=== PATIENT | female | born 1930 | race Caucasian/White ===

== ENCOUNTER → 2017-01-17 | Outpatient (CLI) | payer MEDICARE, OTHER ==
--- NOTE | 2017-01-18 07:47 | US ---
EXAMINATION TYPE: US kidneys/renal and bladder DATE OF EXAM: 01/17/2017 3:18 PM COMPARISON: NONE CLINICAL HISTORY: N20.0 Kidney Stones. UTI's EXAM MEASUREMENTS: Right Kidney: 8.9 x 3.7 x 4.1 cm Left Kidney: 10.5 x 4.3 x 5.8 cm Right Kidney: smaller in size Left Kidney: wnl Bladder: wnl Bilateral Jets seen: Yes No renal lithiasis is identified. No masses cysts or hydronephrosis is evident. IMPRESSION: Normal renal ultrasound.
== END | disposition home or self-care (01) ==
LOC: RADUSWWP 14:48
PROVIDERS: ATTEND Internal Medicine Geriatric Medicine
DX: N20.0 Calculus of kidney (principal)
CPT/HCPCS: 76770

== ENCOUNTER → 2017-04-28 | Outpatient (CLI) | payer MEDICARE, OTHER ==
--- NOTE | 2017-04-28 13:41 | MM ---
Reason for exam: additional evaluation requested from prior study. Last mammogram was performed 1 year ago. History: Patient is postmenopausal, has history of breast cancer at age 82, and has history of other cancer at age 82. Benign US LT VAD breast biopsy of the left breast, March 22, 2013. Malignant US LT VAD breast biopsy of the left breast, March 22, 2013. Mastectomy of the left breast, 2012. Benign stereotactic core biopsy of the left breast, November 06, 2003. Took estrogen for 3 years. Physical Findings: Nurse did not find any significant physical abnormalities on exam. MG 3D Diag Mammo W/Cad RT CC and MLO view(s) were taken of the right breast. Prior study comparison: April 15, 2016, right breast MG 3d diag mammo w/cad RT. April 08, 2015, right breast MG diagnostic mammo RT w CAD. The breast tissue is heterogeneously dense. This may lower the sensitivity of mammography. Finding: There are typically benign diffuse/scattered calcifications in the right breast. No suspicious finding. No significant changes in finding since April 15, 2016 and April 08, 2015. These results were verbally communicated with the patient and result sheet given to the patient on 04/28/17. ASSESSMENT: Benign, BI-RAD 2 RECOMMENDATION: Follow-up diagnostic mammogram of both breasts in 1 year.
== END | disposition home or self-care (01) ==
LOC: RADMAMWWP 12:46
PROVIDERS: ATTEND Internal Medicine Geriatric Medicine
DX: C50.919 Malignant neoplasm of unspecified site of unspecified female breast (principal)
CPT/HCPCS: G0206; G0279

== ENCOUNTER → 2018-06-26 | Outpatient (CLI) | payer MEDICARE, OTHER ==
--- NOTE | 2018-06-26 15:07 | BD ---
EXAMINATION TYPE: Axial Bone Density DATE OF EXAM: 06/26/2018 COMPARISON: NONE CLINICAL HISTORY: Postmenopausal female. Osteoporosis screening. Height: 5 FT 1/2 IN Weight: 158 FRAX RISK QUESTIONS: RISK FACTORS HISTORY OF: Postmenopausal woman: AGE 57 MEDICATIONS: Additional Medications: METOPROLOL, LISINOPRIL, OXYBUTIN, SLEEP AID, MULTI VIT, INSULIN, METFORMIN, Additional History: EXAM MEASUREMENTS: Bone mineral densitometry was performed using the [employer] System. Bone mineral density as measured about the Lumbar spine is: ----- L1-L4(G/cm2): 2.042 T Score Values are as follows: ----- L2: 7.6 ----- L3: 9.9 ----- L4: 6.6 ----- L1-L4: 7.2 FIRST TIME HERE Bone mineral density about the R hip (g/cm2): 0.918 Bone mineral density about the L hip (g/cm2): 0.965 T Score values are as follows: -----R Neck: -0.9 -----L Neck: -0.5 -----R Total: 0.9 -----L Total: 0.8 FIRST TIME HERE IMPRESSION: Normal (Values between +1 and -1 indicate normal bone mass). Consider repeating this study in 5 year s or sooner if there is some new clinical indication. NOTE: T-SCORE=SD OF THE YOUNG ADULT MEAN.
--- NOTE | 2018-06-27 09:03 | MM ---
Reason for exam: additional evaluation requested from prior study. Last mammogram was performed 1 year and 2 months ago. History: Patient is postmenopausal, has history of breast cancer at age 82, and has history of other cancer at age 82. Benign US LT VAD breast biopsy of the left breast, March 22, 2013. Malignant US LT VAD breast biopsy of the left breast, March 22, 2013. Mastectomy of the left breast, 2012. Benign stereotactic core biopsy of the left breast, November 06, 2003. Took estrogen for 3 years. Physical Findings: Nurse did not find any significant physical abnormalities on exam. MG 3D Diag Mammo W/Cad RT CC and MLO view(s) were taken of the right breast. Prior study comparison: April 28, 2017, right breast MG 3d diag mammo w/cad RT. April 15, 2016, right breast MG 3d diag mammo w/cad RT. Finding: There are typically benign diffuse/scattered calcifications in the right breast. No suspicious abnormality. No significant changes in finding since April 28, 2017 and April 15, 2016. These results were verbally communicated with the patient and result sheet given to the patient on 06/26/18. ASSESSMENT: Benign, BI-RAD 2 RECOMMENDATION: Routine screening mammogram of the right breast in 1 year.
== END | disposition home or self-care (01) ==
LOC: RADMAMWWP 13:27
PROVIDERS: ATTEND Internal Medicine Geriatric Medicine
DX: C50.912 Malignant neoplasm of unspecified site of left female breast (principal); M81.0 Age-related osteoporosis without current pathological fracture
CPT/HCPCS: 77080; 77065; G0279; 77061

== ENCOUNTER 2018-09-16 06:37 | Emergency (ER) | payer MEDICARE, OTHER ==
[2018-09-16 06:47] VITALS: PULSE 94; RESP 18
--- NOTE | 2018-09-16 07:50 | ED ---
General Adult HPI - General Chief complaint: Urogenital Stated complaint: Female Time Seen by Provider: 09/16/18 07:00 Source: patient, RN notes reviewed Mode of arrival: wheelchair Limitations: no limitations - History of Present Illness Initial comments: This is an 88-year-old female who presents to the emergency department complaining of urinary frequency. Patient states this started months ago and she has been following up with her doctor. Patient states she came in today because it was worse last night. Patient denies any dysuria or hematuria. Patient denies any fever or chills. Patient denies any suprapubic tenderness. Patient states she is a diabetic and her sugar was in the 70s this morning. Patient denies any back pain. Patient denies any abdominal pain. - Related Data Previous Rx's Medication Instructions Recorded Sulfamethox-Tmp 800-160Mg [Bactrim 1 each PO Q12HR #14 tab 09/16/18 DS 800-160 mg] Allergies Allergy/AdvReac Type Severity Reaction Status Date / Time No Known Allergies Allergy Verified 09/16/18 06:47 Review of Systems ROS Statement: Those systems with pertinent positive or pertinent negative responses have been documented in the HPI. ROS Other: All systems not noted in ROS Statement are negative. Past Medical History Past Medical History: Cancer, Diabetes Mellitus, Hyperlipidemia, Hypertension, Osteoarthritis (OA) History of Any Multi-Drug Resistant Organisms: None Reported Past Surgical History: Appendectomy, Hysterectomy, Joint Replacement, Tonsillectomy Additional Past Surgical History / Comment(s): Left masectomy, bilateral knee Past Psychological History: No Psychological Hx Reported Smoking Status: Former smoker Past Alcohol Use History: None Reported Past Drug Use History: None Reported General Exam - General Exam Comments Initial Comments: GENERAL: Patient is well-developed and well-nourished. Patient is nontoxic and well- hydrated and is in no acute distress. ENT: Neck is soft and supple. No significant lymphadenopathy is noted. Oropharynx is clear. Moist mucous membranes. Neck has full range of motion without eliciting any pain. EYES: The sclera were anicteric and conjunctiva were pink and moist. Extraocular movements were intact and pupils were equal round and reactive to light. Eyelids were unremarkable. PULMONARY: Unlabored respirations. Good breath sounds bilaterally. No audible rales rhonchi or wheezing was noted. CARDIOVASCULAR: There is a regular rate and rhythm without any murmurs gallops or rubs. ABDOMEN: Soft and nontender with normal bowel sounds. No palpable organomegaly was noted. There is no palpable pulsatile mass. SKIN: Skin is clear with no lesions or rashes and otherwise unremarkable. NEUROLOGIC: Patient is alert and oriented x3. Cranial nerves II through XII are grossly intact. Motor and sensory are also intact. Normal speech, volume and content. Symmetrical smile. MUSCULOSKELETAL: Normal extremities with adequate strength and full range of motion. LYMPHATICS: No significant lymphadenopathy is noted Limitations: no limitations Course Vital Signs 09/16/18 06:42 Temperature 97.5 F L Pulse Rate 94 Respiratory 18 Rate Blood Pressure 120/81 O2 Sat by Pulse 99 Oximetry Medical Decision Making - Medical Decision Making I gave the patient Grant because she had a urinary tract infection - Lab Data Lab Results 09/16/18 Range/Units 07:30 Urine Color Light Yellow Urine Appearance Turbid H (Clear) Urine pH 6.0 (5.0-8.0) Ur Specific [place] 1.014 (1.001-1.035) Urine Protein 1+ H (Negative) Urine Glucose (UA) Negative (Negative) Urine Ketones Negative (Negative) Urine Blood Small H (Negative) Urine Nitrite Negative (Negative) Urine Bilirubin Negative (Negative) Urine Urobilinogen <2.0 (<2.0) mg/dL Ur Leukocyte Esterase Large H (Negative) Urine WBC >182 H (0-5) /hpf Urine WBC Clumps Many H (None) /hpf Urine Bacteria Rare H (None) /hpf Urine Mucus Rare H (None) /hpf Disposition Clinical Impression: Urinary tract infection Disposition: HOME SELF-CARE Condition: Good Instructions: Urinary Tract Infection in Women (ED) Prescriptions: Sulfamethox-Tmp 800-160Mg [Bactrim DS 800-160 mg] 1 each PO Q12HR #14 tab Is patient prescribed a controlled substance at d/c from ED?: No Referrals: Sterling Bella MD [Primary Care Provider] - 1-2 days Time of Disposition: 08:27
[2018-09-16 08:07] LABS: Appearance,Urine Turbid (Clear); Bacteria,Urine Rare /hpf; Bilirubin,Urine Negative (Negative); Blood,Urine Small (Negative); Color,Urine Light Yellow; Glucose,Urine (UA) Negative (Negative); Ketones,Urine Negative (Negative); Leukocyte Esterase,Urine Large (Negative); Mucus,Urine Rare /hpf; Nitrite,Urine Negative (Negative); Protein,Urine 1+ (Negative); Specific Gravity,Urine 1.014 (1.001-1.035); Urobilinogen,Urine <2.0 mg/dL (<2.0)
[2018-09-16] MEDS ORDERED: cefTRIAXone 1,000 MG VIAL (IM USE) IM STA (08:21)
[2018-09-16 09:19] VITALS: BP 104/59; TEMP 97.9
== END 2018-09-16 09:19 | disposition home or self-care (01) ==
LOC: EC 06:37
DX: N39.0 Urinary tract infection, site not specified (principal); M19.90 Unspecified osteoarthritis, unspecified site; Z85.9 Personal history of malignant neoplasm, unspecified; Z96.89 Presence of other specified functional implants; Z87.891 Personal history of nicotine dependence
CPT/HCPCS: 81001; 87086; 99283; 96372; J0696; 87077; 87186

== ENCOUNTER 2018-11-18 20:22 | Inpatient (IN) | payer MEDICARE ==
--- NOTE | 2018-11-18 21:09 | ED ---
General Adult HPI - General Chief complaint: Fall Stated complaint: Fall Source: patient, family, EMS, RN notes reviewed Mode of arrival: EMS Limitations: no limitations - History of Present Illness Initial comments: Chief complaint and history of present illness this is an 88-year-old female was brought in by EMS. The patient reports/thinks that she was on her way to the bathroom and she caught her heel on a rug which caused her to fall. Denies any injury from the fall , denies any significant pain. She had an emergency button which summoned the EMS, they helped her get up. She's had bilateral total knee replacement and this makes it difficult for her to get up. After they helped her to her feet she walked to the toilet went to the bathroom and walked out. Patient denies head injury denies neck pain. Denies nausea or vomiting. - Related Data Home Medications Medication Instructions Recorded Confirmed Atorvastatin Calcium [Lipitor] 10 mg PO DAILY 09/16/18 11/18/18 Insulin Glargine,Hum.rec.anlog 80 unit SQ DAILY 09/16/18 11/18/18 [Kory Hwang] L.acidoph,Paracasei, B.lactis 1 cap PO DAILY 09/16/18 11/18/18 [Probiotic] Lisinopril [Zestril] 2.5 mg PO DAILY 09/16/18 11/18/18 Multivitamins, Thera [Multivitamin 1 tab PO DAILY 09/16/18 11/18/18 (formulary)] Oxybutynin Chloride [Ditropan] 5 mg PO DAILY 09/16/18 11/18/18 Vit C/E/Zn/Coppr/Lutein/Zeaxan 1 cap PO DAILY 09/16/18 11/18/18 [Preservision Areds 2 Softgel] metFORMIN HCL [Glucophage] 500 mg PO BID 09/16/18 11/18/18 Cephalexin [Keflex] 250 mg PO DAILY 11/18/18 11/18/18 D [place] 5oomg 3 tab PO DAILY 11/18/18 11/18/18 Ergocalciferol (Vitamin D2) 50,000 unit PO Q7D 11/18/18 11/18/18 [Drisdol] Metoprolol Succinate [Toprol XL] 25 mg PO DAILY 11/18/18 11/18/18 Mirabegron [Myrbetriq] 50 mg PO DAILY 11/18/18 11/18/18 Naproxen Sodium [Aleve] 440 mg PO DAILY 11/18/18 11/18/18 Nitrofurantoin Monohyd/M-Cryst 100 mg PO DAILY 11/18/18 11/18/18 [Macrobid] Temazepam [Restoril] 15 mg PO HS 11/18/18 11/18/18 Allergies Allergy/AdvReac Type Severity Reaction Status Date / Time No Known Allergies Allergy Verified 11/18/18 21:41 Review of Systems ROS Statement: Those systems with pertinent positive or pertinent negative responses have been documented in the HPI. Review of systems patient denies any headache no visual acuity changes no stiff neck or neck pain. Denies palpitations or shortness of breath no GI/ problems. Denies nausea denies vomiting denies any neuro deficits. All systems were reviewed. The patient's past medical problems significant for diabetes mellitus, hyperlipidemia and hypertension. Osteoarthritis, patient past history includes mastectomy for breast cancer. She also has had an appendectomy, hysterectomy bilateral knee replacements tonsillectomy area family history noncontributory no known ALLERGIES. Nonsmoker nondrinker. ROS Other: All systems not noted in ROS Statement are negative. Past Medical History Past Medical History: Cancer, Diabetes Mellitus, Hyperlipidemia, Hypertension, Osteoarthritis (OA) History of Any Multi-Drug Resistant Organisms: None Reported Past Surgical History: Appendectomy, Hysterectomy, Joint Replacement, Tonsillectomy Additional Past Surgical History / Comment(s): Left masectomy, bilateral knee Past Psychological History: No Psychological Hx Reported Smoking Status: Former smoker Past Alcohol Use History: None Reported Past Drug Use History: None Reported General Exam - General Exam Comments Initial Comments: General: The patient is awake and alert, in no distress, and does not appear acutely ill. Patient is here because she had a stumble and fall at home. Denies syncope. Vital signs show temperature 98.6 pulse 98 respiratory rate 19 and blood pressure 109/47. No difficulty breathing. We performed orthostatics and the patient's blood pressure remained appropriate but her heart rate went up to 125 while standing, felt wobbly and had a loose stool. Eye: Pupils are equal, round and reactive to light, extra-ocular movements are inta ct; there is normal conjunctiva bilaterally. No signs of icterus. History of cataract removal. Ears, nose, mouth and throat: There are moist mucous membranes and no oral lesions. Neck: The neck is supple, there is no tenderness, nontender with flexion and extension and looking left and right. No anterior cervical lymphadenopathy. No carotid bruit. Cardiovascular: There is a regular rate and rhythm. No murmur, rub or gallop is appreciated. Respiratory: Lungs are clear to auscultation, respirations are non-labored, breath sounds are equal. No wheezes, stridor, rales, or rhonchi. Palpation of the rib cage causes no discomfort. Gastrointestinal: Soft, non-distended, non-tender abdomen without masses or organomegaly noted. There is no rebound or guarding present. No CVA tenderness. Bowel sounds are unremarkable. Back: There is no tenderness to palpation in the midline. There is no obvious deformity. No rashes noted. Musculoskeletal: Normal ROM, no tenderness, There is no pedal edema. There is no calf tenderness or swelling. Sensation intact. Pulses equal bilaterally 2+. Neurological: CN II-XII intact, There are no obvious motor or sensory deficits. Coordination appears grossly intact. Speech is normal. No focal or lateralizing findings. Patient was unable to stand totally on her own during orthostatics. While laying flat in bed she had no neuro deficits. Skin: Skin is warm and dry and no rashes or lesions are noted. Psychiatric: Cooperative, appropriate mood & affect, normal judgment. Limitations: no limitations Course Vital Signs 11/18/18 11/18/18 20:29 21:05 Temperature 98.6 F Pulse Rate 98 Pulse Rate [ 102 H Sitting Lithographic Platemaker] Pulse Rate [ 124 H Standing Lithographic Platemaker ] Pulse Rate [ 92 Supine Lithographic Platemaker] Respiratory 19 Rate Blood Pressure 109/47 Blood Pressure 127/66 [Right Arm Sitting] Blood Pressure 139/92 [Right Arm Standing] Blood Pressure 114/49 [Right Arm Supine] EKG Findings - EKG Comments: EKG Findings:: EKG was done at 2118 showing sinus rhythm with occasional PACs page undetermined inferior infarct. Rate 97/m, MI interval was 158 QRS 64 QT [address] Botello no old EKG available to compare to. Medical Decision Making - Medical Decision Making Medical decision making; this is an 88-year-old female who reports she stumbled and fell at home. Unable to get up because she's had 2 total knee revisions. After EMS help her up she was able to walk to the bathroom and to the wheelchair and then to the hospital. The patient's trauma examination was all within normal limits. No headache no chest pain no injury to upper or lower extremities. Neurologically grossly intact no focal or lateralizing findings. Patient's EKG showed normal sinus rhythm with occasional PACs but no acute changes. The patient was having orthostatics performed and her heart rate went up precipitously when she stood up and felt dizzy and became incontinent of stool. The patient then revealed that she is on her second course of antibiotics for urinary tract infection. Possibility for C. diff was discussed. Cultures pending. We'll also give the patient fluid bolus, check CBC, and UA. As possibility of a syncopal episode was discussed. At this point unknown if the patient may have bumped her head with a syncopal episode, she will receive a CAT scan of the brain. She remains neurologically intact. It was decided to do a CAT scan of the brain because the patient may have fallen and bumped her head unbeknownst to her. Possibility of a vasovagal syncope is also considered. While in emergency room the patient's blood pressure was normal 1 laying and sitting but of heart rate went up significantly when she stood and he became unsteady, was placed back in the bed and had a large bowel movement she couldn't control. Labs show white count 11 hemoglobin only 8.7 hematocrit of 27. Potassium 5.6 with a BUN of 49 creatinine 1.89 the GFR 23. Glucose 137. Alk phos 170. C. diff negative. CT the brain was done reviewed by radiologist entire report was read. His findings ; a small calcified left frontal meningioma. No ventriculomegaly. No acute fracture. No fluid levels in the sinuses. Mastoid air cells are unremarkable as visualized on mastoid effusion. Impression; no acute findings. As read by Dr. Luque Patient was hydrated 1 L of fluid. No old labs are available to compare today's numbers to. She does appear to be anemic though again no old labs are available. She also presents with acute kidney injury with a BUN of 49 creatinine 1.89 and GFR of only 23. Again no old kidney function test available. She has been on antibiotics several different times for urinary tract infection. Took her last pill today. On a previous visit she had been prescribed Bactrim. She also then stated that she took 1 pill twice a day for 3 days which possibly be a fluoroquinolone but she doesn't have the bottle nor can she remember what the pill was. The patient be admitted for further evaluation, hydration. - Lab Data Result diagrams: 11/18/18 22:27 11/18/18 22:27 Lab Results 11/18/18 11/18/18 11/18/18 Range/Units 22:27 22:27 22:50 WBC 11.6 H (3.8-10.6) k/uL RBC 2.80 L (3.80-5.40) m/uL Hgb 8.7 L (11.4-16.0) gm/dL Hct 27.0 L (34.0-46.0) % MCV 96.5 (80.0-100.0) fL MCH 31.0 (25.0-35.0) pg MCHC 32.1 (31.0-37.0) g/dL RDW 13.5 (11.5-15.5) % Plt Count 258 (150-450) k/uL Neutrophils % 75 % Lymphocytes % 15 % Monocytes % 6 % Eosinophils % 1 % Basophils % 1 % Neutrophils # 8.8 H (1.3-7.7) k/uL Lymphocytes # 1.8 (1.0-4.8) k/uL Monocytes # 0.7 (0-1.0) k/uL Eosinophils # 0.2 (0-0.7) k/uL Basophils # 0.1 (0-0.2) k/uL Sodium 137 (137-145) mmol/L Potassium 5.6 H (3.5-5.1) mmol/L Chloride 102 (98-107) mmol/L Carbon Dioxide 24 (22-30) mmol/L Anion Gap 11 mmol/L BUN 49 H (7-17) mg/dL Creatinine 1.89 H (0.52-1.04) mg/dL Est GFR (CKD-EPI)AfAm 27 (>60 ml/min/1.73 sqM) Est GFR (CKD-EPI)NonAf 23 (>60 ml/min/1.73 sqM) Glucose 137 H (74-99) mg/dL Calcium 9.7 (8.4-10.2) mg/dL Total Bilirubin 0.7 (0.2-1.3) mg/dL AST 20 (14-36) U/L ALT 29 (9-52) U/L Alkaline Phosphatase 170 H (38-126) U/L Total Protein 6.0 L (6.3-8.2) g/dL Albumin 3.3 L (3.5-5.0) g/dL C. difficile (EIA) Intrp Negative (Negative) Disposition Clinical Impression: Vasovagal syncope, Dehydration symptoms, Acute kidney injury Disposition: ADMITTED IP TO THIS [facility] Condition: Serious Is patient prescribed a controlled substance at d/c from ED?: No Referrals: Sterling Bella MD [Primary Care Provider] - 1-2 days
[2018-11-18] MEDS ORDERED: SODIUM CHLORIDE 0.9% 500 ML 500 ML IV ONE (22:20)
[2018-11-18 22:37] LABS: Basophils # (A) 0.1 k/uL (0-0.2); Basophils % (A) 1 %; Eosinophils # (A) 0.2 k/uL (0-0.7); Eosinophils % (A) 1 %; HGB 8.7 gm/dL (11.4-16.0); Lymphocytes # (A) 1.8 k/uL (1.0-4.8); Lymphocytes % (A) 15 %; MCHC 32.1 g/dL (31.0-37.0); MCV 96.5 fL (80.0-100.0); Mean Platelet Volume 7.1; Monocytes # (A) 0.7 k/uL (0-1.0); Monocytes % (A) 6 %; Neutrophils # (A) 8.8 k/uL (1.3-7.7); Neutrophils % (A) 75 %; Platelet Count 258 k/uL (150-450); RDW 13.5 % (11.5-15.5); WBC 11.6 k/uL (3.8-10.6)
[2018-11-18 22:45] LABS: Albumin 3.3 g/dL (3.5-5.0); Calcium 9.7 mg/dL (8.4-10.2); Potassium 5.6 mmol/L (3.5-5.1); Total Bilirubin 0.7 mg/dL (0.2-1.3)
--- NOTE | 2018-11-18 23:26 | CT ---
EXAM: CT Head Without Intravenous Contrast CLINICAL HISTORY: ITS.REASON CT Reason: Pain TECHNIQUE: Axial computed tomography images of the head/brain without intravenous contrast. CTDI is 49 mGy and DLP is [address] exam was performed using one or more of the following dose reduction techniques: automated exposure control, adjustment of the mA and/or kV according to patient size, and/or use of iterative reconstruction technique. COMPARISON: No relevant prior studies available. FINDINGS: Brain: Small calcified left frontal meningioma Ventricles: Unremarkable. No ventriculomegaly. Bones/joints: No acute fracture. Soft tissues: Unremarkable. Sinuses: No fluid levels. Mastoid air cells: Unremarkable as visualized. No mastoid effusion. IMPRESSION: No acute findings.
[2018-11-19] MEDS ORDERED: NALOXONE 0.4 MG/ML 1 ML VIAL IV PRN (01:08)
[2018-11-19 01:30] LABS: Appearance,Urine Cloudy (Clear); Bilirubin,Urine Negative (Negative); Blood,Urine Small (Negative); Color,Urine Yellow; Glucose,Urine (UA) Negative (Negative); Hyaline Casts,Urine 9 /lpf (0-2); Ketones,Urine Negative (Negative); Leukocyte Esterase,Urine Large (Negative); Nitrite,Urine Negative (Negative); PH, Urine 5.5 (5.0-8.0); Protein,Urine 1+ (Negative); RBC,Urine 10 /hpf (0-5); Specific Gravity,Urine 1.013 (1.001-1.035); Squamous Epithelial Cell,Urine 19 /hpf (0-4); WBC,Urine >182 /hpf (0-5)
[2018-11-19] MEDS: SODIUM CHLORIDE 0.9% 1,000 ML IV SCH ×3 (01:51→21:20)
[2018-11-19] MEDS ORDERED: FAMOTIDINE 20 MG TAB PO SCH (09:00)
[2018-11-19] MEDS ORDERED: NITROFURANTOIN MONOHYD/M-CRYST 100 MG CAP PO SCH (09:00)
[2018-11-19] MEDS ORDERED: Mirabegron [Myrbetriq] 50 MG PO SCH (09:00)
[2018-11-19] MEDS ORDERED: metFORMIN 500 MG TAB PO SCH (09:00)
[2018-11-19 09:13] VITALS: BMI 28.1
[2018-11-19] MEDS ORDERED: ERTAPENEM 1 GM in SODIUM CHLORIDE 0.9% 50 ML IVPB SCH (11:00)
[2018-11-19 11:14] LABS: Glucose,Whole Blood 62 mg/dL (75-99)
[2018-11-19 11:28] LABS: Glucose,Whole Blood 60 mg/dL (75-99)
[2018-11-19 11:34] LABS: HCT 25.4 % (34.0-46.0); HGB 7.9 gm/dL (11.4-16.0); MCH 29.1 pg (25.0-35.0); MCV 93.6 fL (80.0-100.0); Platelet Count 253 k/uL (150-450); RBC 2.71 m/uL (3.80-5.40); RDW 13.6 % (11.5-15.5); WBC 10.8 k/uL (3.8-10.6)
[2018-11-19 11:45] LABS: Glucose,Whole Blood 87 mg/dL (75-99)
[2018-11-19 11:52] LABS: Potassium 4.7 mmol/L (3.5-5.1)
[2018-11-19] MEDS: INSULIN DETEMIR (LEVEMIR) 100 UNIT/ML SYR SQ SCH (12:54)
[2018-11-19] MEDS: LACTOBACILLUS ACIDOPH & BULGAR 1 EACH PACKET PO SCH (12:56)
[2018-11-19] MEDS: INSULIN ASPART (NovoLOG) 100 UNIT/ML VIAL SQ SCH ×3 (12:57→21:20)
[2018-11-19] MEDS: VIT A,C & E-LUTEIN-MINERALS 1 EACH TAB PO SCH (12:57)
[2018-11-19] MEDS: LISINOPRIL 2.5 MG TAB PO SCH (12:57)
[2018-11-19] MEDS: METOPROLOL SUCCINATE (ER) 25 MG TAB.ER.24H PO SCH (12:57)
[2018-11-19] MEDS: OXYBUTYNIN CHLORIDE 5 MG TAB PO SCH (13:54)
[2018-11-19 14:14] LABS: Appearance,Urine Turbid (Clear); Bacteria,Urine Many /hpf; Bilirubin,Urine Negative (Negative); Blood,Urine Moderate (Negative); Color,Urine Yellow; Glucose,Urine (UA) Negative (Negative); Ketones,Urine Negative (Negative); Leukocyte Esterase,Urine Large (Negative); Nitrite,Urine Negative (Negative); PH, Urine 5.5 (5.0-8.0); Protein,Urine 1+ (Negative); RBC,Urine 76 /hpf (0-5); Squamous Epithelial Cell,Urine 2 /hpf (0-4); Urobilinogen,Urine <2.0 mg/dL (<2.0); WBC,Urine >182 /hpf (0-5)
--- NOTE | 2018-11-19 14:17 | P.HPIM ---
History of Present Illness H&P Date: 11/19/18 Chief Complaint: Fall This is an 88-year-old female patient of Dr. Bella with past medical history of hypertension, hyperlipidemia and diabetes mellitus type 2, and osteoarthritis, breast cancer status post mastectomy. Patient complains of status post a slip and fall at home. Patient denies any loss of consciousness. She states she was able to push her alert button and EMS came to pick her up. She states she was starting to have diarrhea which would be her first episode of this and was trying to get to the bathroom very quickly with her walker and she was almost there but felt a little lightheaded and then had a trip and fall. She also gives history of being on antibiotics for urinary tract infection that has lasted for the past 6 months. This has been treated by Dr. Bella. Patient was seen by Dr. Colbert and underwent a scope in the office on Monday. He gave the patient a prescription for Macrodantin to take for 3 days if she develops signs and symptoms of a UTI. Patient states that she did take the medication Monday and Monday and completed this. Daughter is at the bedside and states the patient has frequency of urination and she doesn't want to drink fluids so she doesn't have to get up frequently during the night and use the bathroom. Patient does not recall the names of previous antibiotics that she has used over the past 6 months. Patient came into the [facility] emergency center by EMS. She was afebrile. Heart rate running 100-124, blood pressure 109/60 47. Orthostatics were negative. EKG was a sinus rhythm with occasional PACs without acute changes. He white count 11, hemoglobin 8.7, platelet count 258. BUN 49 and creatinine 1.89, blood sugar 137, sodium 137, potassium 5.6, chloride 102, CO2 24. C. difficile toxin negative. Alkaline phosphatase 170. Urinalysis was cloudy, leukoesterase large, rbc's 10, WBCs greater than 182, WBC clumps moderate, squamous cells 19. [facility] and started on IV fluids at 100 mL per hour. CAT scan of the brain showed no acute findings. Review of Systems All systems: negative Constitutional: Reports poor appetite, Denies chills, Denies fever, Denies weakness Eyes: denies blurred vision, denies pain Ears, nose, mouth and throat: Denies dysphagia, Denies headache, Denies sore throat, Denies vertigo Cardiovascular: Reports lightheadedness, Denies chest pain, Denies edema, Denies shortness of breath, Denies syncope Respiratory: Denies cough, Denies cough with sputum, Denies dyspnea, Denies excessive sputum, Denies hemoptysis, Denies home oxygen, Denies wheezing Gastrointestinal: Reports diarrhea, Reports loss of appetite, Denies abdominal pain, Denies bloating, Denies nausea, Denies vomiting Genitourinary: Reports urinary frequency, Denies dysuria, Denies hematuria Musculoskeletal: Denies frequent falls, Denies gait dysfunction, Denies myalgias Integumentary: Denies pruritus, Denies rash, Denies wounds Neurological: Denies aphasia, Denies change in mentation, Denies confusion, Denies gait dysfunction, Denies headaches, Denies numbness, Denies seizures, Denies weakness Psychiatric: Denies anxiety, Denies depression Endocrine: Denies fatigue, Denies weight change Past Medical History Past Medical History: Cancer, Diabetes Mellitus, Hyperlipidemia, Hypertension, Osteoarthritis (OA) History of Any Multi-Drug Resistant Organisms: None Reported Past Surgical History: Appendectomy, Hysterectomy, Joint Replacement, Tonsillectomy Additional Past Surgical History / Comment(s): Left masectomy, bilateral knee Past Psychological History: No Psychological Hx Reported Smoking Status: Former smoker Past Alcohol Use History: None Reported Additional Past Alcohol Use History / Comment(s): Patient was a smoker from [id number]. No illicit drug use, no alcohol use. [facility] Past Drug Use History: None Reported - Past Family History Father Additional Family Medical History / Comment(s): Father young d/t ""bad heart since he was a child" Mother Family Medical History: No Reported History Additional Family Medical History / Comment(s): Mother was healthy and lived to be 75yrs old. Medications and Allergies Home Medications Medication Instructions Recorded Confirmed Type Atorvastatin Calcium [Lipitor] 10 mg PO DAILY 09/16/18 11/18/18 History Insulin Glargine,Hum.rec.anlog 80 unit SQ DAILY 09/16/18 11/18/18 History [Kory Solgary] L.acidoph,Paracasei, B.lactis 1 cap PO DAILY 09/16/18 11/18/18 History [Probiotic] Lisinopril [Zestril] 2.5 mg PO DAILY 09/16/18 11/18/18 History Multivitamins, Thera [Multivitamin 1 tab PO DAILY 09/16/18 11/18/18 History (formulary)] Oxybutynin Chloride [Ditropan] 5 mg PO DAILY 09/16/18 11/18/18 History Vit C/E/Zn/Coppr/Lutein/Zeaxan 1 cap PO DAILY 09/16/18 11/18/18 History [Preservision Areds 2 Softgel] metFORMIN HCL [Glucophage] 500 mg PO BID 09/16/18 11/18/18 History Cephalexin [Keflex] 250 mg PO DAILY 11/18/18 11/18/18 History D Mannose 5oomg 3 tab PO DAILY 11/18/18 11/18/18 History Ergocalciferol (Vitamin D2) 50,000 unit PO Q7D 11/18/18 11/18/18 History [Drisdol] Metoprolol Succinate [Toprol XL] 25 mg PO DAILY 11/18/18 11/18/18 History Mirabegron [Myrbetriq] 50 mg PO DAILY 11/18/18 11/18/18 History Naproxen Sodium [Aleve] 440 mg PO DAILY 11/18/18 11/18/18 History Nitrofurantoin Monohyd/M-Cryst 100 mg PO DAILY 11/18/18 11/18/18 History [Macrobid] Temazepam [Restoril] 15 mg PO HS 11/18/18 11/18/18 History Allergies Allergy/AdvReac Type Severity Reaction Status Date / Time No Known Allergies Allergy Verified 11/18/18 21:41 Physical Exam Vitals: Vital Signs Temp Pulse Pulse Pulse Pulse Resp BP 11/19/18 06:11 101 H 16 100/47 11/19/18 05:30 105 H 16 110/55 11/19/18 04:00 103 H 110/55 11/19/18 03:00 78 18 110/55 11/19/18 01:39 98 F 94 18 110/65 11/18/18 21:05 102 H 124 H 92 11/18/18 20:29 98.6 F 98 19 109/47 BP BP BP Pulse Ox 11/19/18 06:11 95 11/19/18 05:30 95 11/19/18 04:00 11/19/18 03:00 97 11/19/18 01:39 96 11/18/18 21:05 127/66 139/92 114/49 11/18/18 20:29 Intake and Output 11/18/18 11/19/18 11/19/18 22:59 06:59 14:59 Other: Weight 67.585 kg Gen: This is an 88-year-old female. Patient is resting in bed and appears to be comfortable and in no acute distress. HEENT: Head is atraumatic, normocephalic. Pupils equal, round. Sclerae is anicteric. NECK: Supple. No JVD. No lymphadenopathy. No thyromegaly. LUNGS: Clear to auscultation. No wheezes or rhonchi. No intercostal retractions. HEART: Regular rate and rhythm. No murmur. ABDOMEN: Soft. Bowel sounds are present. No masses. No tenderness. EXTREMITIES: No pedal edema. No calf tenderness. NEUROLOGICAL: Patient is awake, alert and oriented x3. Cranial nerves 2 through 12 are grossly intact. Results CBC & Chem 7: 11/19/18 11:05 11/19/18 11:05 Labs: Abnormal Lab Results - Last 24 Hours (Table) 11/18/18 11/18/18 11/18/18 Range/Units 22:27 22:27 22:50 WBC 11.6 H (3.8-10.6) k/uL RBC 2.80 L (3.80-5.40) m/uL Hgb 8.7 L (11.4-16.0) gm/dL Hct 27.0 L (34.0-46.0) % Neutrophils # 8.8 H (1.3-7.7) k/uL Potassium 5.6 H (3.5-5.1) mmol/L BUN 49 H (7-17) mg/dL Creatinine 1.89 H (0.52-1.04) mg/dL Glucose 137 H (74-99) mg/dL Alkaline Phosphatase 170 H (38-126) U/L Total Protein 6.0 L (6.3-8.2) g/dL Albumin 3.3 L (3.5-5.0) g/dL Urine Appearance Cloudy H (Clear) Urine Protein 1+ H (Negative) Urine Blood Small H (Negative) Ur Leukocyte Esterase Large H (Negative) Urine RBC 10 H (0-5) /hpf Urine WBC >182 H (0-5) /hpf Urine WBC Clumps Moderate H (None) /hpf Ur Squamous Epith Cells 19 H (0-4) /hpf Hyaline Casts 9 H (0-2) /lpf Thrombosis Risk Factor Assmnt - DVT/VTE Prophylaxis DVT/VTE Prophylaxis: Pharmacologic Prophylaxis ordered Assessment and Plan Plan: 1. Acute kidney injury with hyperkalemia. [facility] IV fluids 0.9 normal saline at 100 mL per hour. Hold metformin, Aleve, Mirabegron . Patient was also recently treated for urinary tract infection with Bactrim possibly contributing to acute kidney injury. 2. Hypertension. Continue lisinopril 2.5 mg daily and Toprol-XL 25 mg daily. 3. Hyperlipidemia. Continue atorvastatin 10 mg daily. 4. Anemia, unknown if this is chronic. 5. Recent urinary tract infection. A straight cath specimen to be obtained for urinalysis and urine culture. Consult with Dr. Angela. Patient started on Invanz. 6. Overactive bladder. Mirabegron on hold due to acute kidney injury. 7. Diarrhea with recent antibiotic use. C. difficile toxin negative. Stool culture in progress. 8. Mechanical fall with possible lightheadedness prior to episode. PT and OT added. Orthostatic vital signs were negative. 9. Diabetes mellitus type 2 on insulin. Patient will be placed on Levemir at 75% of home dose which will be 60 units daily, metformin on hold due to acute kidney injury. 10. GI prophylaxis. Pepcid. 11. DVT prophylaxis. Lovenox. Patient will be admitted to the hospital for a minimum of 2 night stay. Discharge plan: Most likely home with homecare. Impression and plan of care have been directed as dictated by the signing physician. Brianna Bower nurse practitioner acting as scribe for signing physician.
[2018-11-19 17:06] LABS: Glucose,Whole Blood 176 mg/dL (75-99)
[2018-11-19 18:46] LABS: Hemoglobin A1C 4.8 % (4.0-6.0)
[2018-11-19 20:55] LABS: Glucose,Whole Blood 136 mg/dL (75-99)
[2018-11-19] MEDS: TEMAZEPAM 15 MG CAP PO SCH (21:20)
[2018-11-20 07:04] LABS: Glucose,Whole Blood 66 mg/dL (75-99)
[2018-11-20] MEDS: INSULIN ASPART (NovoLOG) 100 UNIT/ML VIAL SQ SCH ×4 (07:39→20:43)
[2018-11-20 07:44] LABS: Glucose,Whole Blood 80 mg/dL (75-99)
[2018-11-20] MEDS: LISINOPRIL 2.5 MG TAB PO SCH (08:40)
[2018-11-20] MEDS: METOPROLOL SUCCINATE (ER) 25 MG TAB.ER.24H PO SCH (08:40)
[2018-11-20] MEDS: INSULIN DETEMIR (LEVEMIR) 100 UNIT/ML SYR SQ SCH (08:41)
[2018-11-20] MEDS: ENOXAPARIN 30 MG/0.3 ML SYRINGE SQ SCH (08:41)
[2018-11-20] MEDS: FAMOTIDINE 20 MG TAB PO SCH (08:41)
[2018-11-20] MEDS: OXYBUTYNIN CHLORIDE 5 MG TAB PO SCH (08:44)
[2018-11-20] MEDS: ERTAPENEM 0.5 GM in SODIUM CHLORIDE 0.9% 50 ML IVPB SCH (08:44)
[2018-11-20] MEDS: SODIUM CHLORIDE 0.9% 1,000 ML IV SCH (08:47)
[2018-11-20 08:48] LABS: Basophils # (A) 0.1 k/uL (0-0.2); Basophils % (A) 1 %; Eosinophils # (A) 0.3 k/uL (0-0.7); Eosinophils % (A) 2 %; HCT 28.2 % (34.0-46.0); HGB 8.7 gm/dL (11.4-16.0); Hypochromasia Slight; Lymphocytes # (A) 2.9 k/uL (1.0-4.8); Lymphocytes % (A) 23 %; MCH 29.7 pg (25.0-35.0); MCHC 30.6 g/dL (31.0-37.0); Mean Platelet Volume 7.2; Monocytes # (A) 0.8 k/uL (0-1.0); Monocytes % (A) 7 %; Neutrophils % (A) 66 %; Platelet Count 319 k/uL (150-450); RBC 2.91 m/uL (3.80-5.40); RDW 13.7 % (11.5-15.5); WBC 12.2 k/uL (3.8-10.6)
[2018-11-20] MEDS ORDERED: INSULIN DETEMIR (LEVEMIR) 100 UNIT/ML SYR SQ SCH (09:00)
[2018-11-20 09:03] LABS: Albumin 3.6 g/dL (3.5-5.0); Calcium 8.9 mg/dL (8.4-10.2); Potassium 4.7 mmol/L (3.5-5.1); Total Bilirubin 0.7 mg/dL (0.2-1.3); Total Protein 6.6 g/dL (6.3-8.2)
--- NOTE | 2018-11-20 09:18 | P.CONS ---
History of Present Illness - Reason for Consult Consult date: 11/20/18 Recurrent urinary tract infection - History of Present Illness This is an 88-year-old female complains of status post a slip and fall at home. Patient denies any loss of consciousness. She states she was able to push her alert button and EMS came to pick her up. She states she was starting to have diarrhea which would be her first episode of this and was trying to get to the bathroom very quickly with her walker and she was almost there but felt a little lightheaded and then had a trip on a rug and fall. She also gives history of urinary tract infection that has lasted for the past 6 months. Recently she has been on Keflex. Patient was seen by Dr. Colbert and underwent a cystoscope in the office on Monday. Patient was told she has a prolapsed bladder. Dr. Colbert gave the patient a prescription for Macrodantin to take for 3 days if she develops signs and symptoms of a UTI. Patient states that she did take the medication Monday and Monday and completed the course. Patient states when she is having a urinary tract infection her symptoms are frequency every half hour with terrible burning. She denies any flank pain, suprapubic pain and no fever or chills. She states she may have shakes sometimes. Daughter adds that when patient has frequency of urination and she does not to drink enough fluids so she does not need to get up to the bathroom. Patient does not recall the names of previous antibiotics that she has used over the past 6 months. Patient came into the [facility] emergency center by EMS. She was afebrile. Heart rate running 100-124, blood pressure 109/60 47. Orthostatics were negative. EKG was a sinus rhythm with occasional PACs without acute changes. He white count 11, hemoglobin 8.7, platelet count 258. BUN 49 and creatinine 1.89, blood sugar 137, sodium 137, potassium 5.6, chloride 102, CO2 24. C. difficile toxin negative. Alkaline phosphatase 170. Urinalysis was cloudy, leukoesterase large, rbc's 10, WBCs greater than 182, WBC clumps moderate, squamous cells 19. CAT scan of the brain showed no acute findings. Patient was given 500 mL of normal saline [facility] and started on IV fluids at 100 mL per hour and ertapenem. Repeat urinalysis and urine culture were obtained by straight cath. Noted the patient was also in the emergency center and diagnosed with UTI and discharged on Bactrim for 7 day course. Urine culture at that time was Klebsiella pneumoniae gomez sensitive and resistant only to ampicillin and nitrofurantoin. Repeat urine cultures done as an outpatient were finalized on October 17 with normal pravin and November 09 with no growth. Patient has been taking D-Mannose as well. Patient is currently having frequency of urination thought to be due to IV fluids. She denies any burning sensation at this time. Patient has had decreased appetite for the past 2 years since her . Review of Systems Constitutional: Reports poor appetite, Denies chills, Denies fever, Denies weakness Eyes: denies blurred vision, denies pain Ears, nose, mouth and throat: Denies dysphagia, Denies headache, Denies sore throat, Denies vertigo Cardiovascular: Reports lightheadedness, Denies chest pain, Denies edema, Denies shortness of breath, Denies syncope Respiratory: Denies cough, Denies cough with sputum, Denies dyspnea, Denies excessive sputum, Denies hemoptysis, Denies home oxygen, Denies wheezing Gastrointestinal: Reports diarrhea, Reports loss of appetite, Denies abdominal pain, Denies bloating, Denies nausea, Denies vomiting Genitourinary: Reports urinary frequency, Denies dysuria, Denies hematuria Musculoskeletal: Denies frequent falls, Denies gait dysfunction, Denies myalgias Integumentary: Denies pruritus, Denies rash, Denies wounds Neurological: Denies aphasia, Denies change in mentation, Denies confusion, Denies gait dysfunction, Denies headaches, Denies numbness, Denies seizures, Denies weakness Psychiatric: Denies anxiety, Denies depression Endocrine: Denies fatigue, Denies weight change Past Medical History Past Medical History: Cancer, Diabetes Mellitus, Hyperlipidemia, Hypertension, Osteoarthritis (OA) Additional Past Medical History / Comment(s): L breast cancer with mastectomy, IDDM type II, 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 History of Any Multi-Drug Resistant Organisms: None Reported Past Surgical History: Appendectomy, Hysterectomy, Joint Replacement, Tonsillectomy Additional Past Surgical History / Comment(s): Left masectomy, bilateral knee Past Anesthesia/Blood Transfusion Reactions: No Reported Reaction Additional Past Anesthesia/Blood Transfusion Reaction / Comm: Pt received blood with hysterectomy without reaction. Past Psychological History: No Psychological Hx Reported Smoking Status: Former smoker Past Alcohol Use History: None Reported Additional Past Alcohol Use History / Comment(s): Patient was a smoker from [id number]. No illicit drug use, no alcohol use. Patient lives at home in senior apartment. Past Drug Use History: None Reported - Past Family History Father Additional Family Medical History / Comment(s): Father young d/t ""bad heart since he was a child" Mother Family Medical History: No Reported History Additional Family Medical History / Comment(s): Mother was healthy and lived to be 75yrs old. Medications and Allergies Home Medications Medication Instructions Recorded Confirmed Type Atorvastatin Calcium [Lipitor] 10 mg PO DAILY 09/16/18 11/18/18 History Insulin Glargine,Hum.rec.anlog 80 unit SQ DAILY 09/16/18 11/18/18 History [Toujeo Solostar] L.acidoph,Paracasei, B.lactis 1 cap PO DAILY 09/16/18 11/18/18 History [Probiotic] Lisinopril [Zestril] 2.5 mg PO DAILY 09/16/18 11/18/18 History Multivitamins, Thera [Multivitamin 1 tab PO DAILY 09/16/18 11/18/18 History (formulary)] Oxybutynin Chloride [Ditropan] 5 mg PO DAILY 09/16/18 11/18/18 History Vit C/E/Zn/Coppr/Lutein/Zeaxan 1 cap PO DAILY 09/16/18 11/18/18 History [Preservision Areds 2 Softgel] metFORMIN HCL [Glucophage] 500 mg PO BID 09/16/18 11/18/18 History Cephalexin [Keflex] 250 mg PO DAILY 11/18/18 11/18/18 History D Mannose 5oomg 3 tab PO DAILY 11/18/18 11/18/18 History Ergocalciferol (Vitamin D2) 50,000 unit PO Q7D 11/18/18 11/18/18 History [Drisdol] Metoprolol Succinate [Toprol XL] 25 mg PO DAILY 11/18/18 11/18/18 History Mirabegron [Myrbetriq] 50 mg PO DAILY 11/18/18 11/18/18 History Naproxen Sodium [Aleve] 440 mg PO DAILY 11/18/18 11/18/18 History Nitrofurantoin Monohyd/M-Cryst 100 mg PO DAILY 11/18/18 11/18/18 History [Macrobid] Temazepam [Restoril] 15 mg PO HS 11/18/18 11/18/18 History Allergies Allergy/AdvReac Type Severity Reaction Status Date / Time No Known Allergies Allergy Verified 11/18/18 21:41 Physical Exam Vitals: Vital Signs Temp Pulse Pulse Pulse Pulse Resp BP 11/20/18 04:28 97.6 F 97 16 110/66 11/19/18 21:00 98.6 F 108 H 17 11/19/18 16:00 102 H 124 H 99 18 11/19/18 12:03 98 F 99 18 118/66 11/19/18 09:17 97.9 F 105 H 16 111/61 BP Pulse Ox 11/20/18 04:28 97 11/19/18 21:00 124/65 95 11/19/18 16:00 11/19/18 12:03 97 11/19/18 09:17 97 Intake and Output 11/19/18 11/20/18 11/20/18 22:59 06:59 14:59 Intake Total 300 800 Balance 300 800 Intake: Intake, IV Titration 300 800 Amount Sodium Chloride 0.9% 1, 300 800 000 ml @ 100 mls/hr IV . Q10H [facility] Rx#:[id number] Other: Voiding Method Toilet # Voids 3 5 Gen: This is an 88-year-old female. Patient is resting on the edge of the bed and appears to be comfortable and in no acute distress. HEENT: Head is atraumatic, normocephalic. Pupils equal, round. Sclerae is anicteric. Conjunctiva pink. NECK: Supple. No JVD. No lymphadenopathy. No thyromegaly. LUNGS: Clear to auscultation. No wheezes or rhonchi. No intercostal retractions. HEART: Regular rate and rhythm. No murmur. ABDOMEN: Soft. Bowel sounds are present. No masses. No tenderness. No suprapubic tenderness, no CVA tenderness bilaterally. EXTREMITIES: No pedal edema. No calf tenderness. Dorsalis pedis +2 bilaterally. NEUROLOGICAL: Patient is awake, alert and oriented x3. Cranial nerves 2 through 12 are grossly intact. Results Results: Laboratory Results WBC 10.8 k/uL (3.8-10.6) H 11/19/18 11:05 RBC 2.71 m/uL (3.80-5.40) L 11/19/18 11:05 Hgb 7.9 gm/dL (11.4-16.0) L 11/19/18 11:05 Hct 25.4 % (34.0-46.0) L 11/19/18 11:05 MCV 93.6 fL (80.0-100.0) 11/19/18 11:05 MCH 29.1 pg (25.0-35.0) 11/19/18 11:05 MCHC 31.0 g/dL (31.0-37.0) 11/19/18 11:05 RDW 13.6 % (11.5-15.5) 11/19/18 11:05 Plt Count 253 k/uL (150-450) 11/19/18 11:05 Neutrophils % 75 % 11/18/18 22:27 Lymphocytes % 15 % 11/18/18 22:27 Monocytes % 6 % 11/18/18 22:27 Eosinophils % 1 % 11/18/18 22:27 Basophils % 1 % 11/18/18 22:27 Neutrophils # 8.8 k/uL (1.3-7.7) H 11/18/18 22:27 Lymphocytes # 1.8 k/uL (1.0-4.8) 11/18/18 22:27 Monocytes # 0.7 k/uL (0-1.0) 11/18/18 22:27 Eosinophils # 0.2 k/uL (0-0.7) 11/18/18 22:27 Basophils # 0.1 k/uL (0-0.2) 11/18/18 22:27 Sodium 139 mmol/L (137-145) 11/19/18 11:05 Potassium 4.7 mmol/L (3.5-5.1) 11/19/18 11:05 Chloride 109 mmol/L (98-107) H 11/19/18 11:05 Carbon Dioxide 24 mmol/L (22-30) 11/19/18 11:05 Anion Gap 6 mmol/L 11/19/18 11:05 BUN 41 mg/dL (7-17) H 11/19/18 11:05 Creatinine 1.48 mg/dL (0.52-1.04) H 11/19/18 11:05 Est GFR (CKD-EPI)AfAm 36 (>60 ml/min/1.73 sqM) 11/19/18 11:05 Est GFR (CKD-EPI)NonAf 31 (>60 ml/min/1.73 sqM) 11/19/18 11:05 Glucose 56 mg/dL (74-99) L 11/19/18 11:05 POC Glucose (mg/dL) 80 mg/dL (75-99) 11/20/18 07:43 POC Glu Ict Educator ID Lani Rees 11/20/18 07:[address] Glu mg/dL 91 11/19/18 11:05 Hemoglobin A1c 4.8 % (4.0-6.0) 11/19/18 11:05 Calcium 9.0 mg/dL (8.4-10.2) 11/19/18 11:05 Total Bilirubin 0.7 mg/dL (0.2-1.3) 11/18/18 22:27 AST 20 U/L (14-36) 11/18/18 22:27 ALT 29 U/L (9-52) 11/18/18 22:27 Alkaline Phosphatase 170 U/L (38-126) H 11/18/18 22:27 Total Protein 6.0 g/dL (6.3-8.2) L 11/18/18 22:27 Albumin 3.3 g/dL (3.5-5.0) L 11/18/18 22:27 Urine Color Yellow 11/19/18 13:40 Urine Appearance Turbid (Clear) H 11/19/18 13:40 Urine pH 5.5 (5.0-8.0) 11/19/18 13:40 Ur Specific [place] 1.010 (1.001-1.035) 11/19/18 13:40 Urine Protein 1+ (Negative) H 11/19/18 13:40 Urine Glucose (UA) Negative (Negative) 11/19/18 13:40 Urine Ketones Negative (Negative) 11/19/18 13:40 Urine Blood Moderate (Negative) H 11/19/18 13:40 Urine Nitrite Negative (Negative) 11/19/18 13:40 Urine Bilirubin Negative (Negative) 11/19/18 13:40 Urine Urobilinogen <2.0 mg/dL (<2.0) 11/19/18 13:40 Ur Leukocyte Esterase Large (Negative) H 11/19/18 13:40 Urine RBC 76 /hpf (0-5) H 11/19/18 13:40 Urine WBC >182 /hpf (0-5) H 11/19/18 13:40 Urine WBC Clumps Many /hpf (None) H 11/19/18 13:40 Ur Squamous Epith Cells 2 /hpf (0-4) 11/19/18 13:40 Urine Bacteria Many /hpf (None) H 11/19/18 13:40 Hyaline Casts 9 /lpf (0-2) H 11/18/18 22:50 C. difficile (EIA) Intrp Negative (Negative) 11/18/18 22:50 CBC & Chem 7: 11/19/18 11:05 11/19/18 11:05 Labs: Abnormal Lab Results - Last 24 Hours (Table) 11/19/18 11/19/18 11/19/18 Range/Units 11:05 11:05 11:12 WBC 10.8 H (3.8-10.6) k/uL RBC 2.71 L (3.80-5.40) m/uL Hgb 7.9 L (11.4-16.0) gm/dL Hct 25.4 L (34.0-46.0) % Chloride 109 H (98-107) mmol/L BUN 41 H (7-17) mg/dL Creatinine 1.48 H (0.52-1.04) mg/dL Glucose 56 L (74-99) mg/dL POC Glucose (mg/dL) 62 L (75-99) mg/dL Urine Appearance (Clear) Urine Protein (Negative) Urine Blood (Negative) Ur Leukocyte Esterase (Negative) Urine RBC (0-5) /hpf Urine WBC (0-5) /hpf Urine WBC Clumps (None) /hpf Urine Bacteria (None) /hpf 11/19/18 11/19/18 11/19/18 Range/Units 11:27 13:40 17:05 WBC (3.8-10.6) k/uL RBC (3.80-5.40) m/uL Hgb (11.4-16.0) gm/dL Hct (34.0-46.0) % Chloride (98-107) mmol/L BUN (7-17) mg/dL Creatinine (0.52-1.04) mg/dL Glucose (74-99) mg/dL POC Glucose (mg/dL) 60 L 176 H (75-99) mg/dL Urine Appearance Turbid H (Clear) Urine Protein 1+ H (Negative) Urine Blood Moderate H (Negative) Ur Leukocyte Esterase Large H (Negative) Urine RBC 76 H (0-5) /hpf Urine WBC >182 H (0-5) /hpf Urine WBC Clumps Many H (None) /hpf Urine Bacteria Many H (None) /hpf 11/19/18 11/20/18 Range/Units 20:27 07:02 WBC (3.8-10.6) k/uL RBC (3.80-5.40) m/uL Hgb (11.4-16.0) gm/dL Hct (34.0-46.0) % Chloride (98-107) mmol/L BUN (7-17) mg/dL Creatinine (0.52-1.04) mg/dL Glucose (74-99) mg/dL POC Glucose (mg/dL) 136 H 66 L (75-99) mg/dL Urine Appearance (Clear) Urine Protein (Negative) Urine Blood (Negative) Ur Leukocyte Esterase (Negative) Urine RBC (0-5) /hpf Urine WBC (0-5) /hpf Urine WBC Clumps (None) /hpf Urine Bacteria (None) /hpf Microbiology - Last 24 Hours (Table) 11/19/18 13:40 Urine Culture - Preliminary Urine,Catheterized 11/18/18 22:50 Stool Culture - Preliminary Stool 11/18/18 22:50 Urine Culture - Preliminary Urine,Voided Assessment and Plan Plan: This is an 88-year-old female who presents with a slip and fall at home and found to have acute kidney injury with hyperkalemia that is resolving. Patient relates that she has had ongoing problems with urinary tract infection for the past 6 months. She has follow-up with Dr. Colbert and recently underwent a cystoscopy in the office. She does have known prolapsed bladder. Patient was treated with Bactrim in September, recently with Keflex and over the weekend with Macrodantin. Patient has been taking D-Mannose as well. Patient is currently on Invanz. Urine cultures are in progress. Continue supportive care. Further recommendations as patient regresses. The above dictated assessment and findings were discussed with Dr. Angela. The impression and plan of care have been directed as dictated. Brianna Bower nurse practitioner acting as scribe for Dr. Angela.
--- NOTE | 2018-11-20 11:15 | P.CON ---
Consult Note - . Consult date: 11/20/18 Assessment/Plan:: This is an 88-year-old female complains of status post a slip and fall at home. Patient denies any loss of consciousness. She states she was able to push her alert button and EMS came to pick her up. She states she was starting to have diarrhea which would be her first episode of this and was trying to get to the bathroom very quickly with her walker and she was almost there but felt a little lightheaded and then had a trip on a rug and fall. She also gives history of urinary tract infection that has lasted for the past 6 months. Recently she has been on Keflex. Patient was seen by Dr. Colbert and underwent a cystoscope in the office on Monday. Patient was told she has a prolapsed bladder. Dr. Colbert gave the patient a prescription for Macrodantin to take for 3 days if she develops signs and symptoms of a UTI. Patient states that she did take the medication Monday and Monday and completed the course. Patient states when she is having a urinary tract infection her symptoms are frequency every half hour with terrible burning. She denies any flank pain, suprapubic pain and no fever or chills. She states she may have shakes sometimes. Daughter adds that when patient has frequency of urination and she does not to drink enough fluids so she does not need to get up to the bathroom. Patient does not recall the names of previous antibiotics that she has used over the past 6 months. Patient came into the [facility] emergency center by EMS. She was afebrile. Heart rate running 100-124, blood pressure 109/60 47. Orthostatics were negative. EKG was a sinus rhythm with occasional PACs without acute changes. He white count 11, hemoglobin 8.7, platelet count 258. BUN 49 and creatinine 1.89, blood sugar 137, sodium 137, potassium 5.6, chloride 102, CO2 24. C. difficile toxin negative. Alkaline phosphatase 170. Urinalysis was cloudy, leukoesterase large, rbc's 10, WBCs greater than 182, WBC clumps moderate, squamous cells 19. CAT scan of the brain showed no acute findings. Patient was given 500 mL of normal saline Patient was admitted to the [facility] floor for acute kidney injury and started on IV fluids at 100 mL per hour and ertapenem. Repeat urinalysis and urine culture were obtained by straight cath. Noted the patient was also in the emergency center and diagnosed with UTI and discharged on Bactrim for 7 day course. Urine culture at that time was K lebsiella pneumoniae gomez sensitive and resistant only to ampicillin and nitrofurantoin. Repeat urine cultures done as an outpatient were finalized on October 17 with normal pravin and November 09 with no growth. Patient has been taking D-Mannose as well. Patient is currently having frequency of urination thought to be due to IV fluids. She denies any burning sensation at this time. Patient has had decreased appetite for the past 2 years since her . Please see the consult note as dictated by YARN MERCERIZER OPERATOR Mrs. Brianna Bower. 88-year-old woman presents after becoming weak at home, she was having some difficulty with some loose stool but had just started, she was rushing to the restroom when she slipped and fell. She doesn't was brought to hospital. She has a known history of multiple urinary tract infections and is currently received a dose of ertapenem based on concerns resistant pathogen. The outpatient culture does show evidence of Klebsiella pneumonia that was resistant to Macrodantin which she had just had a course for in the outpatient setting. Thus we await the urine culture results to constructs the outpatient plan. Hopefully it will be oral. And then hopefully with a product such as Cystex which will contain cranberry as well as d-mannose and probiotics and antioxidants she can have improved bladder health. She has been seen by urology and does have some bladder prolapse. The patient frequently changes or urinary pads in brief if they are soiled. She's been instructed in importance of improving her protein intake. I agree with the evaluation assessment and plan as dictated by YARN MERCERIZER OPERATOR Mrs Brianna Bower.
[2018-11-20 11:22] LABS: Glucose,Whole Blood 138 mg/dL (75-99)
--- NOTE | 2018-11-20 11:44 | P.PN ---
Subjective Progress Note Date: 11/20/18 This is an 88-year-old female patient of Dr. Bella with past medical history of hypertension, hyperlipidemia and diabetes mellitus type 2, and osteoarthritis, breast cancer status post mastectomy. Patient complains of status post a slip and fall at home. Patient denies any loss of consciousness. She states she was able to push her alert button and EMS came to pick her up. She states she was starting to have diarrhea which would be her first episode of this and was trying to get to the bathroom very quickly with her walker and she was almost there but felt a little lightheaded and then had a trip and fall. She also gives history of being on antibiotics for urinary tract infection that has lasted for the past 6 months. This has been treated by Dr. Bella. Patient was seen by Dr. Colbert and underwent a scope in the office on Monday. He gave the patient a prescription for Macrodantin to take for 3 days if she develops signs and symptoms of a UTI. Patient states that she did take the medication Monday and Monday and completed this. Daughter is at the bedside and states the patient has frequency of urination and she doesn't want to drink fluids so she doesn't have to get up frequently during the night and use the bathroom. Patient does not recall the names of previous antibiotics that she has used over the past 6 months. Patient came into the [facility] emergency center by EMS. She was afebrile. Heart rate running 100-124, blood pressure 109/67. Orthostatics were negative. EKG was a sinus rhythm with occasional PACs without acute fall es. He white count 11, hemoglobin 8.7, platelet count 258. BUN 49 and creatinine 1.89, blood sugar 137, sodium 137, potassium 5.6, chloride 102, CO2 24. C. difficile toxin negative. Alkaline phosphatase 170. Urinalysis was cloudy, leukoesterase large, rbc's 10, WBCs greater than 182, WBC clumps moderate, squamous cells 19. Patient was admitted to the [facility] floor for acute kidney injury and started on IV fluids at 100 mL per hour. CAT scan of the brain showed no acute findings. 11/20: Patient remains afebrile, heart rate running in the 90s and low 100s, blood pressure 110/66, pulse ox 97% on room air. Repeat white count 12.2, hemoglobin 8.7, platelet count 319. Chloride 110, CO2 28 and creatinine 1.15. IV fluids will be discontinued and saline lock ordered. Patient have repeat u rinalysis obtained by straight cath it was turbid with blood moderate, leukoesterase large, RBC 76, WBCs greater than 182, Meme BC clumps many, bacteria many. Urine culture is in progress. Blood culture is status received. The patient is able to ambulate in her room get to the bathroom with standby assistance only. She states she does not have much appetite but she is eating and drinking. We will plan to monitor overnight and possible discharge by tomorrow. Review of Systems Constitutional: Reports poor appetite, Denies chills, Denies fever, Denies weakness Eyes: denies blurred vision, denies pain Ears, nose, mouth and throat: Denies dysphagia, Denies headache, Denies sore throat, Denies vertigo Cardiovascular: Reports lightheadedness, Denies chest pain, Denies edema, Denies shortness of breath, Denies syncope Respiratory: Denies cough, Denies cough with sputum, Denies dyspnea, Denies excessive sputum, Denies hemoptysis, Denies home oxygen, Denies wheezing Gastrointestinal: Reports diarrhea, Reports loss of appetite, Denies abdominal pain, Denies bloating, Denies nausea, Denies vomiting Genitourinary: Reports urinary frequency, Denies dysuria, Denies hematuria Musculoskeletal: Denies frequent falls, Denies gait dysfunction, Denies myalgias Integumentary: Denies pruritus, Denies rash, Denies wounds Neurological: Denies aphasia, Denies change in mentation, Denies confusion, Denies gait dysfunction, Denies headaches, Denies numbness, Denies seizures, Denies weakness Psychiatric: Denies anxiety, Denies depression Endocrine: Denies fatigue, Denies weight change Objective - Vital Signs Vital signs: Vital Signs Temp 97.6 F 11/20/18 04:28 Pulse 97 11/20/18 04:28 Resp 16 11/20/18 04:28 BP 110/66 11/20/18 04:28 Pulse Ox 97 11/20/18 04:28 Intake & Output 11/19/18 11/20/18 11/20/18 18:59 06:59 18:59 Intake Total 1100 Balance 1100 Weight 67.585 kg Intake: Intake, IV Titration 1100 Amount Sodium Chloride 0.9% 1, 1100 000 ml @ 100 mls/hr IV . Q10H [facility] Rx#:[id number] Other: Voiding Method Toilet Toilet # Voids 5 5 - Exam Gen: This is an 88-year-old female. Patient is resting on the edge of the bed and appears to be comfortable and in no acute distress. HEENT: Head is atraumatic, normocephalic. Pupils equal, round. Sclerae is anicteric. Conjunctiva pink. NECK: Supple. No JVD. No lymphadenopathy. No thyromegaly. LUNGS: Clear to auscultation. No wheezes or rhonchi. No intercostal retractions. HEART: Regular rate and rhythm. No murmur. ABDOMEN: Soft. Bowel sounds are present. No masses. No tenderness. No suprapubic tenderness, no CVA tenderness bilaterally. EXTREMITIES: No pedal edema. No calf tenderness. Dorsalis pedis +2 bilat erally. NEUROLOGICAL: Patient is awake, alert and oriented x3. Cranial nerves 2 through 12 are grossly intact. - Labs CBC & Chem 7: 11/20/18 08:29 11/20/18 08:29 Labs: Abnormal Lab Results - Last 24 Hours (Table) 11/19/18 11/19/18 11/19/18 Range/Units 11:05 11:05 11:12 WBC 10.8 H (3.8-10.6) k/uL RBC 2.71 L (3.80-5.40) m/uL Hgb 7.9 L (11.4-16.0) gm/dL Hct 25.4 L (34.0-46.0) % MCHC (31.0-37.0) g/dL Neutrophils # (1.3-7.7) k/uL Chloride 109 H (98-107) mmol/L BUN 41 H (7-17) mg/dL Creatinine 1.48 H (0.52-1.04) mg/dL Glucose 56 L (74-99) mg/dL POC Glucose (mg/dL) 62 L (75-99) mg/dL Alkaline Phosphatase (38-126) U/L Urine Appearance (Clear) Urine Protein (Negative) Urine Blood (Negative) Ur Leukocyte Esterase (Negative) Urine RBC (0-5) /hpf Urine WBC (0-5) /hpf Urine WBC Clumps (None) /hpf Urine Bacteria (None) /hpf 11/19/18 11/19/18 11/19/18 Range/Units 11:27 13:40 17:05 WBC (3.8-10.6) k/uL RBC (3.80-5.40) m/uL Hgb (11.4-16.0) gm/dL Hct (34.0-46.0) % MCHC (31.0-37.0) g/dL Neutrophils # (1.3-7.7) k/uL Chloride (98-107) mmol/L BUN (7-17) mg/dL Creatinine (0.52-1.04) mg/dL Glucose (74-99) mg/dL POC Glucose (mg/dL) 60 L 176 H (75-99) mg/dL Alkaline Phosphatase (38-126) U/L Urine Appearance Turbid H (Clear) Urine Protein 1+ H (Negative) Urine Blood Moderate H (Negative) Ur Leukocyte Esterase Large H (Negative) Urine RBC 76 H (0-5) /hpf Urine WBC >182 H (0-5) /hpf Urine WBC Clumps Many H (None) /hpf Urine Bacteria Many H (None) /hpf 11/19/18 11/20/18 11/20/18 Range/Units 20:27 07:02 08:29 WBC 12.2 H (3.8-10.6) k/uL RBC 2.91 L (3.80-5.40) m/uL Hgb 8.7 L (11.4-16.0) gm/dL Hct 28.2 L (34.0-46.0) % MCHC 30.6 L (31.0-37.0) g/dL Neutrophils # 8.0 H (1.3-7.7) k/uL Chloride (98-107) mmol/L BUN (7-17) mg/dL Creatinine (0.52-1.04) mg/dL Glucose (74-99) mg/dL POC Glucose (mg/dL) 136 H 66 L (75-99) mg/dL Alkaline Phosphatase (38-126) U/L Urine Appearance (Clear) Urine Protein (Negative) Urine Blood (Negative) Ur Leukocyte Esterase (Negative) Urine RBC (0-5) /hpf Urine WBC (0-5) /hpf Urine WBC Clumps (None) /hpf Urine Bacteria (None) /hpf 11/20/18 Range/Units 08:29 WBC (3.8-10.6) k/uL RBC (3.80-5.40) m/uL Hgb (11.4-16.0) gm/dL Hct (34.0-46.0) % MCHC (31.0-37.0) g/dL Neutrophils # (1.3-7.7) k/uL Chloride 110 H (98-107) mmol/L BUN 28 H (7-17) mg/dL Creatinine 1.15 H (0.52-1.04) mg/dL Glucose 113 H (74-99) mg/dL POC Glucose (mg/dL) (75-99) mg/dL Alkaline Phosphatase 134 H (38-126) U/L Urine Appearance (Clear) Urine Protein (Negative) Urine Blood (Negative) Ur Leukocyte Esterase (Negative) Urine RBC (0-5) /hpf Urine WBC (0-5) /hpf Urine WBC Clumps (None) /hpf Urine Bacteria (None) /hpf Microbiology - Last 24 Hours (Table) 11/19/18 13:40 Urine Culture - Preliminary Urine,Catheterized 11/18/18 22:50 Stool Culture - Preliminary Stool 11/18/18 22:50 Urine Culture - Preliminary Urine,Voided Assessment and Plan Plan: 1. Acute kidney injury with hyperkalemia. Patient admitted to the [facility] floor. IV fluids 0.9 normal saline at 100 mL per hour. Hold metformin, Aleve, Mirabegron. 2. Hypertension. Continue lisinopril 2.5 mg daily and Toprol-XL 25 mg daily. 3. Hyperlipidemia. Continue atorvastatin 10 mg daily. 4. Anemia, unknown if this is chronic. 5. Recent urinary tract infection. A straight cath specimen obtained for ur inalysis and urine culture. Consult with Dr. Angela appreciated. Continue Invanz. 6. Overactive bladder. Mirabegron on hold due to acute kidney injury. 7. Diarrhea with recent antibiotic use. C. difficile toxin negative. Stool culture in progress. 8. Mechanical fall with possible lightheadedness prior to episode. PT and OT added. Orthostatic vital signs were negative. 9. Diabetes mellitus type 2 on insulin. Patient will be placed on Levemir at 75% of home dose which will be 60 units daily, metformin on hold due to acute kidney injury. 10. GI prophylaxis. Pepcid. 11. DVT prophylaxis. Lovenox. Discharge plan: Most likely home with homecare. Impression and plan of care have been directed as dictated by the signing physician. Brianna Bower nurse practitioner acting as scribe for signing physician.
[2018-11-20] MEDS: VIT A,C & E-LUTEIN-MINERALS 1 EACH TAB PO SCH (13:15)
[2018-11-20] MEDS: LACTOBACILLUS ACIDOPH & BULGAR 1 EACH PACKET PO SCH (13:15)
[2018-11-20 17:25] LABS: Glucose,Whole Blood 107 mg/dL (75-99)
[2018-11-20] MEDS: metFORMIN 500 MG TAB PO SCH (17:32)
[2018-11-20 20:47] LABS: Glucose,Whole Blood 67 mg/dL (75-99)
[2018-11-20] MEDS ORDERED: DEXTROSE 5% IN WATER 1,000 ML IV ONE (21:02)
[2018-11-20 21:05] LABS: Glucose,Whole Blood 65 mg/dL (75-99)
[2018-11-20 21:24] LABS: Glucose,Whole Blood 87 mg/dL (75-99)
[2018-11-20 21:47] LABS: Glucose,Whole Blood 83 mg/dL (75-99)
[2018-11-20] MEDS: TEMAZEPAM 15 MG CAP PO SCH (22:14)
[2018-11-20 22:16] LABS: Glucose,Whole Blood 102 mg/dL (75-99)
[2018-11-20] MEDS ORDERED: DEXTROSE 5% IN WATER 1,000 ML IV SCH (23:00)
[2018-11-21 02:09] LABS: Glucose,Whole Blood 67 mg/dL (75-99)
[2018-11-21 02:13] LABS: Glucose,Whole Blood 61 mg/dL (75-99)
[2018-11-21 02:37] LABS: Glucose,Whole Blood 89 mg/dL (75-99)
[2018-11-21 04:20] LABS: Glucose,Whole Blood 85 mg/dL (75-99)
[2018-11-21 07:28] LABS: Glucose,Whole Blood 55 mg/dL (75-99)
[2018-11-21] MEDS ORDERED: DEXTROSE 50%-WATER 50 ML SYRINGE IVP ONE (07:42)
[2018-11-21] MEDS: INSULIN ASPART (NovoLOG) 100 UNIT/ML VIAL SQ SCH ×4 (07:43→20:39)
[2018-11-21 07:58] LABS: Glucose,Whole Blood 53 mg/dL (75-99)
[2018-11-21 08:01] LABS: Glucose,Whole Blood 175 mg/dL (75-99)
[2018-11-21] MEDS: INSULIN DETEMIR (LEVEMIR) 100 UNIT/ML SYR SQ SCH ×2 (08:03→20:57)
[2018-11-21] MEDS: metFORMIN 500 MG TAB PO SCH ×2 (08:14→18:15)
[2018-11-21] MEDS: ERTAPENEM 0.5 GM in SODIUM CHLORIDE 0.9% 50 ML IVPB SCH (08:14)
[2018-11-21] MEDS: LISINOPRIL 2.5 MG TAB PO SCH (08:14)
[2018-11-21] MEDS: METOPROLOL SUCCINATE (ER) 25 MG TAB.ER.24H PO SCH (08:14)
[2018-11-21] MEDS: FAMOTIDINE 20 MG TAB PO SCH (08:14)
[2018-11-21] MEDS: ENOXAPARIN 30 MG/0.3 ML SYRINGE SQ SCH (08:17)
[2018-11-21] MEDS: OXYBUTYNIN CHLORIDE 5 MG TAB PO SCH (08:17)
[2018-11-21 11:13] LABS: Glucose,Whole Blood 309 mg/dL (75-99)
--- NOTE | 2018-11-21 11:14 | CDI ---
Documentation Clarification Form Date: 11/21/2018 11:05:42 AM From: Lis MuhammadWallerRY hankins, CCDS Admit Date: 11/19/2018 1:08:00 AM Patient Name: Jenny Fisher Visit Number: [id number] Discharge Date: ATTENTION: The Clinical Documentation Specialists (CDI) and [facility] Coding Staff appreciate your assistance in clarifying documentation. Please respond to the clarification below the line at the bottom and electronically sign. The CDI & [facility] Coding staff will review the response and follow-up if needed. Please note: Queries are made part of the Legal Health Record. If you have any questions, please contact the author of this message via ITS. Dr. Dionna Vicente: A diagnosis of anemia lacks specificity to accurately reflect your patients severity of condition and clarification is needed. Per the attending H/P: "Anemia, unknown if this is chronic." History/Risk Factors: Recurrent UTIs w/antibiotic treatment (Bactrim), Breast Cancer, IDDM II, Hyperlipidemia, Hypertension, OA, Former smoker. Clinical indicators: Presented from home after a trip & fall, unable to get up. Has had diarrhea, on antibiotics (Bactrim) approximately six months for recurrent UTI. Diagnosed with SHAHZAD, dehydration, recurrent UTI. Hemoglobin: 8.7* - 7.9* Hematocrit: 27.0* - 25.4* Treatment: IV fluid bolus, IV Narcan, IV fluid rate 100, IV Invanz, IV Dextrose/Water. In order to capture the severity of condition, please clarify the type of anemia and etiology if known: Acute blood loss anemia, specify cause if known Acute on chronic blood loss anemia, specify cause if known Chronic blood loss anemia, specify cause if known Iron deficiency anemia Hemolytic anemia Drug induced anemia, specify drug(s) if known Nutritional anemia Unable to determine Other, please specify (Last Revision: June 2017) chronic __ MTDD
[2018-11-21] MEDS: VIT A,C & E-LUTEIN-MINERALS 1 EACH TAB PO SCH (12:55)
[2018-11-21] MEDS: LACTOBACILLUS ACIDOPH & BULGAR 1 EACH PACKET PO SCH (12:55)
--- NOTE | 2018-11-21 14:52 | P.PN ---
Subjective Progress Note Date: 11/21/18 This is an 88-year-old female patient of Dr. Bella with past medical history of hypertension, hyperlipidemia and diabetes mellitus type 2, and osteoarthritis, breast cancer status post mastectomy. Patient complains of status post a slip and fall at home. Patient denies any loss of consciousness. She states she was able to push her alert button and EMS came to pick her up. She states she was starting to have diarrhea which would be her first episode of this and was trying to get to the bathroom very quickly with her walker and she was almost there but felt a little lightheaded and then had a trip and fall. She also gives history of being on antibiotics for urinary tract infection that has lasted for the past 6 months. This has been treated by Dr. Bella. Patient was seen by Dr. Colbert and underwent a scope in the office on Monday. He gave the patient a prescription for Macrodantin to take for 3 days if she develops signs and symptoms of a UTI. Patient states that she did take the medication Monday and Monday and completed this. Daughter is at the bedside and states the patient has frequency of urination and she doesn't want to drink fluids so she doesn't have to get up frequently during the night and use the bathroom. Patient does not recall the names of previous antibiotics that she has used over the past 6 months. Patient came into the [facility] emergency center by EMS. She was afebrile. Heart rate running 100-124, blood pressure 109/67. Orthostatics were negative. EKG was a sinus rhythm with occasional PACs without acute fall es. He white count 11, hemoglobin 8.7, platelet count 258. BUN 49 and creatinine 1.89, blood sugar 137, sodium 137, potassium 5.6, chloride 102, CO2 24. C. difficile toxin negative. Alkaline phosphatase 170. Urinalysis was cloudy, leukoesterase large, rbc's 10, WBCs greater than 182, WBC clumps moderate, squamous cells 19. Patient was admitted to the [facility] floor for acute kidney injury and started on IV fluids at 100 mL per hour. CAT scan of the brain showed no acute findings. 11/20: Patient remains afebrile, heart rate running in the 90s and low 100s, blood pressure 110/66, pulse ox 97% on room air. Repeat white count 12.2, hemoglobin 8.7, platelet count 319. Chloride 110, CO2 28 and creatinine 1.15. IV fluids will be discontinued and saline lock ordered. Patient have repeat u rinalysis obtained by straight cath it was turbid with blood moderate, leukoesterase large, RBC 76, WBCs greater than 182, Meme BC clumps many, bacteria many. Urine culture is in progress. Blood culture is status received. The patient is able to ambulate in her room get to the bathroom with standby assistance only. She states she does not have much appetite but she is eating and drinking. We will plan to monitor overnight and possible discharge by tomorrow. 11/21: Patient has been afebrile, heart rate in the 80s and 90s, blood pressure 122/80, pulse ox 96% on room air. Patient had a drop in her blood sugar this morning to 55 and repeat was 53 she was started on 50% dextrose and also started on IV of dextrose 5%. Now her blood sugars are up to 309. Patient clarified her Toujeo dose at home is really 50 units not 80 units which was documented. Levemir will be decreased to 20 units twice daily. Urine culture is currently pending with a gram-negative bacilli and Group D enterococcus. We'll plan to monitor overnight and plan for discharge tomorrow. Stool culture is positive for E. coli 0 157: Age 7 and she is in isolation. Patient has had no further diarrhea. Review of Systems Constitutional: Reports poor appetite, Denies chills, Denies fever, Denies weakness Eyes: denies blurred vision, denies pain Ears, nose, mouth and throat: Denies dysphagia, Denies headache, Denies sore throat, Denies vertigo Cardiovascular: Reports lightheadedness, Denies chest pain, Denies edema, Denies shortness of breath, Denies syncope Respiratory: Denies cough, Denies cough with sputum, Denies dyspnea, Denies excessive sputum, Denies hemoptysis, Denies home oxygen, Denies wheezing Gastrointestinal: Denies diarrhea, Reports loss of appetite, Denies abdominal pain, Denies bloating, Denies nausea, Denies vomiting Genitourinary: Reports urinary frequency, Denies dysuria, Denies hematuria Musculoskeletal: Denies frequent falls, Denies gait dysfunction, Denies myalgias Integumentary: Denies pruritus, Denies rash, Denies wounds Neurological: Denies aphasia, Denies change in mentation, Denies confusion, Denies gait dysfunction, Denies headaches, Denies numbness, Denies seizures, Denies weakness Psychiatric: Denies anxiety, Denies depression Endocrine: Denies fatigue, Denies weight change Objective - Vital Signs Vital signs: Vital Signs Temp 98 F 11/21/18 05:00 Pulse 98 11/21/18 05:00 Resp 17 11/21/18 05:00 BP 128/53 11/21/18 05:00 Pulse Ox 99 11/21/18 05:00 Intake & Output 11/20/18 11/21/18 11/21/18 18:59 06:59 18:59 Intake Total 638 088 7820 Balance 327 620 8703 Intake: IV 50 Ertapenem 0.5 gm In 50 Sodium Chloride 0.9% 50 ml @ 100 mls/hr IVPB DAILY [facility] Rx#:[id number] Intake, IV Titration 750 125 600 Amount Dextrose 5% in Water 1, 125 000 ml @ 75 mls/hr IV . [id number] Rx#:[id number] Dextrose 5% in Water 1, 600 000 ml @ 75 mls/hr IV . [id number] [facility] Rx#:[id number] Sodium Chloride 0.9% 1, 750 000 ml @ 100 mls/hr IV . Q10H [facility] Rx#:[id number] Oral 540 540 Other: Voiding Method Toilet Toilet Toilet # Voids 4 3 # Bowel Movements 1 - Exam Gen: This is an 88-year-old female. Patient is resting in recliner and appears to be comfortable and in no acute distress. HEENT: Head is atraumatic, normocephalic. Pupils equal, round. Sclerae is anicteric. Conjunctiva pink. NECK: Supple. No JVD. No lymphadenopathy. No thyromegaly. LUNGS: Clear to auscultation. No wheezes or rhonchi. No intercostal retractions. HEART: Regular rate and rhythm. No murmur. ABDOMEN: Soft. Bowel sounds are present. No masses. No tenderness. No suprapubic tenderness, no CVA tenderness bilaterally. EXTREMITIES: No pedal edema. No calf tenderness. Dorsalis pedis +2 bilaterally. NEUROLOGICAL: Patient is awake, alert and oriented x3. Cranial nerves 2 through 12 are grossly intact. - Labs CBC & Chem 7: 11/20/18 08:29 11/20/18 08:29 Labs: Abnormal Lab Results - Last 24 Hours (Table) 11/20/18 11/20/18 11/20/18 Range/Units 11:21 17:22 20:40 POC Glucose (mg/dL) 138 H 107 H 67 L (75-99) mg/dL 11/20/18 11/20/18 11/21/18 Range/Units 20:56 22:14 01:49 POC Glucose (mg/dL) 65 L 102 H 67 L (75-99) mg/dL 11/21/18 11/21/18 11/21/18 Range/Units 02:11 07:27 07:40 POC Glucose (mg/dL) 61 L 55 L 53 L (75-99) mg/dL 11/21/18 11/21/18 Range/Units 07:59 11:10 POC Glucose (mg/dL) 175 H 309 H (75-99) mg/dL Microbiology - Last 24 Hours (Table) 11/19/18 13:40 Urine Culture - Final Urine,Catheterized 11/19/18 14:25 Blood Culture - Preliminary Blood No Growth after 24 hours 11/18/18 22:50 Stool Culture - Preliminary Stool Escherichia coli O157:[id number] 11/18/18 22:50 Urine Culture - Preliminary Urine,Voided Gram Neg Bacilli Group D Enterococcus Assessment and Plan Plan: 1. Acute kidney injury with hyperkalemia. Patient admitted to the [facility]. IV fluids discontinued. Hold Aleve, Mirabegron. 2. Hypertension. Continue lisinopril 2.5 mg daily and Toprol-XL 25 mg daily. 3. Hyperlipidemia. Continue atorvastatin 10 mg daily. 4. Anemia, unknown if this is chronic. 5. Recent urinary tract infection. A straight cath specimen obtained for urinalysis and urine culture. Consult with Dr. Angela appreciated. Continue Invanz. Cultures are pending. 6. Overactive bladder. Mirabegron on hold due to acute kidney injury. 7. Diarrhea with recent antibiotic use. C. difficile toxin negative. Stool culture as above. Isolation.. 8. Mechanical fall with possible lightheadedness prior to episode. PT and OT added. Orthostatic vital signs were negative. 9. Diabetes mellitus type 2 on insulin uncontrolled with hypoglycemia. Levemir changed to 20 units twice daily, metformin 500 mg twice daily. 10. GI prophylaxis. Pepcid. 11. DVT prophylaxis. Lovenox. Discharge plan: Most likely home with homecare tomorrow. Impression and plan of care have been directed as dictated by the signing physician. Brianna Bower nurse practitioner acting as scribe for signing physician.
--- NOTE | 2018-11-21 16:51 | P.PN ---
Subjective Progress Note Date: 11/21/18 This is an 88-year-old female complains of status post a slip and fall at home. Patient denies any loss of consciousness. She states she was able to push her alert button and EMS came to pick her up. She states she was starting to have diarrhea which would be her first episode of this and was trying to get to the bathroom very quickly with her walker and she was almost there but felt a little lightheaded and then had a trip on a rug and fall. She also gives history of urinary tract infection that has lasted for the past 6 months. Recently she has been on Keflex. Patient was seen by Dr. Colbert and underwent a cystoscope in the office on Monday. Patient was told she has a prolapsed bladder. Dr. Colbert gave the patient a prescription for Macrodantin to take for 3 days if she develops signs and symptoms of a UTI. Patient states that she did take the medication Monday and Monday and completed the course. Patient states when she is having a urinary tract infection her s ymptoms are frequency every half hour with terrible burning. She denies any flank pain, suprapubic pain and no fever or chills. She states she may have shakes sometimes. Daughter adds that when patient has frequency of urination and she does not to drink enough fluids so she does not need to get up to the bathroom. Patient does not recall the names of previous antibiotics that she has used over the past 6 months. Patient came into the [facility] emergency center by EMS. She was afebrile. Heart rate running 100-124, blood pressure 109/60 47. Orthostatics were negative. EKG was a sinus rhythm with occasional PACs without acute changes. He white count 11, hemoglobin 8.7, platelet count 258. BUN 49 and creatinine 1.89, blood sugar 137, sodium 137, potassium 5.6, chloride 102, CO2 24. C. difficile toxin negative. Alkaline phosphatase 170. Urinalysis was cloudy, leukoesterase large, rbc's 10, WBCs greater than 182, WBC clumps moderate, squamous cells 19. CAT scan of the brain showed no acute findings. Patient was given 500 mL of normal saline Patient was admitted to the [facility] floor for acute kidney injury and started on IV fluids at 100 mL per hour and er tapenem. Repeat urinalysis and urine culture were obtained by straight cath. Noted the patient was also in the emergency center and diagnosed with UTI and discharged on Bactrim for 7 day course. Urine culture at that time was Klebsiella pneumoniae gomez sensitive and resistant only to ampicillin and nitrofurantoin. Repeat urine cultures done as an outpatient were finalized on October 17 with normal pravin and November 09 with no growth. Patient has been taking D-Mannose as well. Patient is currently having frequency of urination thought to be due to IV fluids. She denies any burning sensation at this time. Patient has had decreased appetite for the past 2 years since her . 11/21/2018 patient relates he is doing somewhat better today. The diarrhea has resolved. He's had a couple of stools today that were non-diarrhea. She's having no smoking abdominal pain. No further fevers or chills. Urine culture is in process. Objective - Vital Signs Vital signs: Vital Signs Temp 98 F 11/21/18 11:49 Pulse 89 11/21/18 11:49 Resp 16 11/21/18 11:49 BP 122/80 11/21/18 11:49 Pulse Ox 96 11/21/18 11:49 Intake & Output 11/20/18 11/21/18 11/21/18 18:59 06:59 18:59 Intake Total 884 412 4486 Balance 643 671 0877 Intake: IV 50 Ertapenem 0.5 gm In 50 Sodium Chloride 0.9% 50 ml @ 100 mls/hr IVPB DAILY BABAK Rx#:[id number] Intake, IV Titration 750 125 600 Amount Dextrose 5% in Water 1, 125 000 ml @ 75 mls/hr IV . [id number] ONE Rx#:[id number] Dextrose 5% in Water 1, 600 000 ml @ 75 mls/hr IV . [id number] BABAK Rx#:[id number] Sodium Chloride 0.9% 1, 750 000 ml @ 100 mls/hr IV . Q10H BABAK Rx#:[id number] Oral 540 540 Other: Voiding Method Toilet Toilet Toilet # Voids 4 3 # Bowel Movements 1 1 - Exam Gen: This is an 88-year-old female. Patient is resting on the edge of the bed and appears to be comfortable and in no acute distress. HEENT: Head is atraumatic, normocephalic. Pupils equal, round. Sclerae is anicteric. Conjunctiva pink. NECK: Supple. No JVD. No lymphadenopathy. No thyromegaly. LUNGS: Clear to auscultation. No wheezes or rhonchi. No intercostal retractions. HEART: Regular rate and rhythm. No murmur. ABDOMEN: Soft. Bowel sounds are present. No masses. No tenderness. No suprapu bic tenderness, no CVA tenderness bilaterally. EXTREMITIES: No pedal edema. No calf tenderness. Dorsalis pedis +2 bilaterally. NEUROLOGICAL: Patient is awake, alert and oriented x3. Cranial nerves 2 through 12 are grossly intact. - Labs CBC & Chem 7: 11/20/18 08:29 11/20/18 08:29 Labs: Abnormal Lab Results - Last 24 Hours (Table) 11/20/18 11/20/18 11/20/18 Range/Units 17:22 20:40 20:56 POC Glucose (mg/dL) 107 H 67 L 65 L (75-99) mg/dL 11/20/18 11/21/18 11/21/18 Range/Units 22:14 01:49 02:11 POC Glucose (mg/dL) 102 H 67 L 61 L (75-99) mg/dL 11/21/18 11/21/18 11/21/18 Range/Units 07:27 07:40 07:59 POC Glucose (mg/dL) 55 L 53 L 175 H (75-99) mg/dL 11/21/18 Range/Units 11:10 POC Glucose (mg/dL) 309 H (75-99) mg/dL Microbiology - Last 24 Hours (Table) 11/19/18 14:25 Blood Culture - Preliminary Blood No Growth after 48 hours 11/18/18 22:50 Urine Culture - Final Urine,Voided Klebsiella oxytoca Enterococcus faecalis 11/19/18 13:40 Urine Culture - Final Urine,Catheterized 11/18/18 22:50 Stool Culture - Preliminary Stool Escherichia coli O157:H7 Laboratory Results WBC 12.2 k/uL (3.8-10.6) H 11/20/18 08:29 RBC 2.91 m/uL (3.80-5.40) L 11/20/18 08:29 Hgb 8.7 gm/dL (11.4-16.0) L 11/20/18 08:29 Hct 28.2 % (34.0-46.0) L 11/20/18 08:29 MCV 97.0 fL (80.0-100.0) 11/20/18 08:29 MCH 29.7 pg (25.0-35.0) 11/20/18 08:29 MCHC 30.6 g/dL (31.0-37.0) L 11/20/18 08:29 RDW 13.7 % (11.5-15.5) 11/20/18 08:29 Plt Count 319 k/uL (150-450) 11/20/18 08:29 Neutrophils % 66 % 11/20/18 08:29 Lymphocytes % 23 % 11/20/18 08:29 Monocytes % 7 % 11/20/18 08:29 Eosinophils % 2 % 11/20/18 08:29 Basophils % 1 % 11/20/18 08:29 Neutrophils # 8.0 k/uL (1.3-7.7) H 11/20/18 08:29 Lymphocytes # 2.9 k/uL (1.0-4.8) 11/20/18 08:29 Monocytes # 0.8 k/uL (0-1.0) 11/20/18 08:29 Eosinophils # 0.3 k/uL (0-0.7) 11/20/18 08:29 Basophils # 0.1 k/uL (0-0.2) 11/20/18 08:29 Hypochromasia Slight 11/20/18 08:29 Sodium 142 mmol/L (137-145) 11/20/18 08:29 Potassium 4.7 mmol/L (3.5-5.1) 11/20/18 08:29 Chloride 110 mmol/L (98-107) H 11/20/18 08:29 Carbon Dioxide 22 mmol/L (22-30) 11/20/18 08:29 Anion Gap 10 mmol/L 11/20/18 08:29 BUN 28 mg/dL (7-17) H 11/20/18 08:29 Creatinine 1.15 mg/dL (0.52-1.04) H 11/20/18 08:29 Est GFR (CKD-EPI)AfAm 49 (>60 ml/min/1.73 sqM) 11/20/18 08:29 Est GFR (CKD-EPI)NonAf 43 (>60 ml/min/1.73 sqM) 11/20/18 08:29 Glucose 113 mg/dL (74-99) H 11/20/18 08:29 POC Glucose (mg/dL) 309 mg/dL (75-99) H 11/21/18 11:10 POC Glu Survey Researcher ID Lani Rees 11/21/18 11:[address] Glu mg/dL 91 11/19/18 11:05 Hemoglobin A1c 4.8 % (4.0-6.0) 11/19/18 11:05 Calcium 8.9 mg/dL (8.4-10.2) 11/20/18 08:29 Total Bilirubin 0.7 mg/dL (0.2-1.3) 11/20/18 08:29 AST 23 U/L (14-36) 11/20/18 08:29 ALT 30 U/L (9-52) 11/20/18 08:29 Alkaline Phosphatase 134 U/L (38-126) H 11/20/18 08:29 Total Protein 6.6 g/dL (6.3-8.2) 11/20/18 08:29 Albumin 3.6 g/dL (3.5-5.0) 11/20/18 08:29 Urine Color Yellow 11/19/18 13:40 Urine Appearance Turbid (Clear) H 11/19/18 13:40 Urine pH 5.5 (5.0-8.0) 11/19/18 13:40 Ur Specific [place] 1.010 (1.001-1.035) 11/19/18 13:40 Urine Protein 1+ (Negative) H 11/19/18 13:40 Urine Glucose (UA) Negative (Negative) 11/19/18 13:40 Urine Ketones Negative (Negative) 11/19/18 13:40 Urine Blood Moderate (Negative) H 11/19/18 13:40 Urine Nitrite Negative (Negative) 11/19/18 13:40 Urine Bilirubin Negative (Negative) 11/19/18 13:40 Urine Urobilinogen <2.0 mg/dL (<2.0) 11/19/18 13:40 Ur Leukocyte Esterase Large (Negative) H 11/19/18 13:40 Urine RBC 76 /hpf (0-5) H 11/19/18 13:40 Urine WBC >182 /hpf (0-5) H 11/19/18 13:40 Urine WBC Clumps Many /hpf (None) H 11/19/18 13:40 Ur Squamous Epith Cells 2 /hpf (0-4) 11/19/18 13:40 Urine Bacteria Many /hpf (None) H 11/19/18 13:40 Hyaline Casts 9 /lpf (0-2) H 11/18/18 22:50 C. difficile (EIA) Intrp Negative (Negative) 11/18/18 22:50 Microbiology 11/19/18 14:25 Blood Blood Culture - Preliminary No Growth after 48 hours 11/18/18 22:50 Urine,Voided Urine Culture - Final Klebsiella oxytoca Enterococcus faecalis 11/19/18 13:40 Urine,Catheterized Urine Culture - Final 11/18/18 22:50 Stool Stool Culture - Preliminary Escherichia coli O157:H7 Assessment and Plan (1) Acute kidney injury Current Visit: Yes Status: Acute Code(s): N17.9 - ACUTE KIDNEY FAILURE, UNSPECIFIED SNOMED Code(s): 32087558 (2) Urinary tract infection Narrative/Plan: 88-year-old woman presents after becoming weak at home, she was having some difficulty with some loose stool but had just started, she was rushing to the restroom when she slipped and fell. She doesn't was brought to hospital. She has a known history of multiple urinary tract infections and is currently received a dose of ertapenem based on concerns resistant pathogen. The outpatient culture does show evidence of Klebsiella pneumonia that was resistant to Macrodantin which she had just had a course for in the outpatient setting. Thus we await the urine culture results to constructs the outpatient plan. Hopefully it will be oral. And then hopefully with a product such as Cystex which will contain cranberry as well as d-mannose and probiotics and antioxid ants she can have improved bladder health. She has been seen by urology and does have some bladder prolapse. The patient frequently changes or urinary pads in brief if they are soiled. She's been instructed in importance of improving her protein intake. . 11/21/2018 88-year-old woman relates that she is feeling slowly better today. She has only had a few softer stools today. She has no complaints of further urinary symptoms but does have ongoing urinary frequency while she is on IV hydration. She is not having dysuria or hematuria. She relates her urine is no longer concentrated. The urine culture is pending availability of this will then help us determine the course of antibiotic therapy at home. We'll expected to be oral given her current improvement, his lungs are noted resistant pathogens. The E. coli 01 57 as well as significant stool but Shiga toxin is still pending. However symptomatically she is doing considerably better. She is not having ongoing diarrhea. Avoidance of antidiarrheals has been related. Current Visit: Yes Status: Acute Code(s): N39.0 - URINARY TRACT INFECTION, SITE NOT SPECIFIED SNOMED Code(s): 68083690 (3) E coli serotype O157:H7 infection Current Visit: Yes Status: Acute Code(s): A05.8 - OTHER SPECIFIED BACTERIAL FOODBORNE INTOXICATIONS SNOMED Code(s): 738122529
[2018-11-21 17:24] LABS: Glucose,Whole Blood 108 mg/dL (75-99)
[2018-11-21 20:28] LABS: Glucose,Whole Blood 172 mg/dL (75-99)
[2018-11-21] MEDS: TEMAZEPAM 15 MG CAP PO SCH (20:57)
[2018-11-21 21:30] VITALS: RESP 18
[2018-11-22 02:39] LABS: Glucose,Whole Blood 127 mg/dL (75-99)
[2018-11-22 05:08] VITALS: BP 144/65; TEMP 97.7
[2018-11-22 07:20] LABS: Glucose,Whole Blood 63 mg/dL (75-99)
[2018-11-22 07:35] LABS: Glucose,Whole Blood 66 mg/dL (75-99)
[2018-11-22] MEDS: INSULIN ASPART (NovoLOG) 100 UNIT/ML VIAL SQ SCH ×2 (07:51→11:11)
[2018-11-22 08:01] LABS: Glucose,Whole Blood 107 mg/dL (75-99)
[2018-11-22] MEDS: ENOXAPARIN 30 MG/0.3 ML SYRINGE SQ SCH (08:26)
[2018-11-22] MEDS: LISINOPRIL 2.5 MG TAB PO SCH (08:26)
[2018-11-22] MEDS: METOPROLOL SUCCINATE (ER) 25 MG TAB.ER.24H PO SCH (08:26)
[2018-11-22] MEDS: FAMOTIDINE 20 MG TAB PO SCH (08:29)
[2018-11-22] MEDS: ERTAPENEM 0.5 GM in SODIUM CHLORIDE 0.9% 50 ML IVPB SCH (08:29)
[2018-11-22] MEDS: INSULIN DETEMIR (LEVEMIR) 100 UNIT/ML SYR SQ SCH (08:30)
[2018-11-22] MEDS: metFORMIN 500 MG TAB PO SCH (08:30)
[2018-11-22] MEDS: OXYBUTYNIN CHLORIDE 5 MG TAB PO SCH (08:31)
[2018-11-22 11:08] LABS: Glucose,Whole Blood 204 mg/dL (75-99)
[2018-11-22 11:09] VITALS: PULSE 99
[2018-11-22] MEDS: LACTOBACILLUS ACIDOPH & BULGAR 1 EACH PACKET PO SCH (11:12)
[2018-11-22] MEDS: VIT A,C & E-LUTEIN-MINERALS 1 EACH TAB PO SCH (11:12)
--- NOTE | 2018-11-22 14:46 | P.DS ---
Providers Date of admission: 11/19/18 01:08 Expected date of discharge: 11/22/18 Attending physician: Sterling Bella Consults: 11/20/18 08:11 Consult Physician Routine Consulting Provider: Sterling Angela Consult Reason/Comments: recurrent UTIs Do you want consulting provider notified?: Yes Primary care physician: Sterling Bella [facility] Course: This is an 88-year-old female patient of Dr. Bella with past medical history of hypertension, hyperlipidemia and diabetes mellitus type 2, and osteoarthritis, breast cancer status post mastectomy. Patient complains of status post a slip and fall at home. Patient denies any loss of consciousness. She states she was able to push her alert button and EMS came to pick her up. She states she was starting to have diarrhea which would be her first episode of this and was trying to get to the bathroom very quickly with her walker and she was almost there but felt a little lightheaded and then had a trip and fall. She also gives history of being on antibiotics for urinary tract infection that has lasted for the past 6 months. This has been treated by Dr. Bella. Patient was seen by Dr. Colbert and underwent a scope in the office on Monday. He gave the patient a prescription for Macrodantin to take for 3 days if she develops signs and symptoms of a UTI. Patient states that she did take the medication Monday and Monday and completed this. Daughter is at the bedside and states the patient has frequency of urination and she doesn't want to drink fluids so she doesn't have to get up frequently during the night and use the bathroom. Patient does not recall the names of previous antibiotics that she has used over the past 6 months. Patient came into the [facility] emergency center by EMS. She was afebrile. Heart rate running 100-124, blood pressure 109/67. Orthostatics were negative. EKG was a sinus rhythm with occasional PACs without acute changes. He white count 11, hemoglobin 8.7, platelet count 258. BUN 49 and creatinine 1.89, blood sugar 137, sodium 137, potassium 5.6, chloride 102, CO2 24. C. difficile toxin negative. Alkaline phosphatase 170. Urinalysis was cloudy, leukoesterase large, rbc's 10, WBCs greater than 182, WBC clumps moderate, squamous cells 19. Patient was admitted to the [facility] floor for acute kidney injury and started on IV fluids at 100 mL per hour. CAT scan of the brain showed no acute findings. 11/20: Patient remains afebrile, heart rate running in the 90s and low 100s, blood pressure 110/66, pulse ox 97% on room air. Repeat white count 12.2, hemoglobin 8.7, platelet count 319. Chloride 110, CO2 28 and creatinine 1.15. IV fluids will be discontinued and saline lock ordered. Patient have repeat urinalysis obtained by straight cath it was turbid with blood moderate, leukoesterase large, RBC 76, WBCs greater than 182, WBC clumps many, bacteria many. Urine culture is in progress. Blood culture is status received. The patient is able to ambulate in her room get to the bathroom with standby assistance only. She states she does not have much appetite but she is eating and drinking. We will plan to monitor overnight and possible discharge by tomorrow. 11/21: Patient has been afebrile, heart rate in the 80s and 90s, blood pressure 122/80, pulse ox 96% on room air. Patient had a drop in her blood sugar this morning to 55 and repeat was 53 she was started on 50% dextrose and also started on IV of dextrose 5%. Now her blood sugars are up to 309. Patient clarified her Toujeo dose at home is really 50 units not 80 units which was documented. Levemir will be decreased to 20 units twice daily. Urine culture is currently pending with a gram-negative bacilli and Group D enterococcus. We'll plan to monitor overnight and plan for discharge tomorrow. Stool culture is positive for E. coli 0 157:H7 and she is in isolation. Patient has had no further diarrhea. 11/22: Patient has been afebrile, heart rate in the 90s to 100, blood pressure 144/65, pulse ox 95% on room air. Urine culture has been finalized with Klebsiella oxytoca and enterococcus faecalis. Dr. Angela has recommended Augmentin for 10 day course. Patient will be discharged home today in stable condition. Discharge diagnoses: 1. Acute kidney injury with hyperkalemia. 2. Hypertension. 3. Hyperlipidemia. 4. Anemia, unknown if this is chronic. 5. Recurrent urinary tract infection. 6. Overactive bladder. 7. Diarrhea with positive for E. coli 0 157:H7. 8. Mechanical fall with possible lightheadedness prior to episode. 9. Diabetes mellitus type 2 on insulin uncontrolled with hypoglycemia. Discharge plan: home Impression and plan of care have been directed as dictated by the signing physician. Brianna Bower nurse practitioner acting as scribe for signing physician. Patient Condition at Discharge: Good Plan - Discharge Summary Discharge Rx Participant: No New Discharge Prescriptions: New Amoxic-Pot Clav 875-125Mg [Augmentin 875-125] 1 tab PO Q12HR #20 tablet Methenamine/Sodium Salicylate [Cystex Tablet] 1 each PO DAILY #30 tablet Continue Insulin Glargine,Hum.rec.anlog [Toujeo Solostar] 50 unit SQ DAILY metFORMIN HCL [Glucophage] 500 mg PO BID Vit C/E/Zn/Coppr/Lutein/Zeaxan [Preservision Areds 2 Softgel] 1 cap PO DAILY Oxybutynin Chloride [Ditropan] 5 mg PO DAILY Multivitamins, Thera [Multivitamin (formulary)] 1 tab PO DAILY Lisinopril [Zestril] 2.5 mg PO DAILY Atorvastatin Calcium [Lipitor] 10 mg PO DAILY Mirabegron [Myrbetriq] 50 mg PO DAILY Ergocalciferol (Vitamin D2) [Drisdol] 50,000 unit PO Q7D Metoprolol Succinate [Toprol XL] 25 mg PO DAILY Temazepam [Restoril] 15 mg PO HS Discontinued L.acidoph,Paracasei, B.lactis [Probiotic] 1 cap PO DAILY Naproxen Sodium [Aleve] 440 mg PO DAILY Cephalexin [Keflex] 250 mg PO DAILY Nitrofurantoin Monohyd/M-Cryst [Macrobid] 100 mg PO DAILY D Mannose 5oomg 3 tab PO DAILY Discharge Medication List Atorvastatin Calcium [Lipitor] 10 mg PO DAILY 09/16/18 [History] Insulin Glargine,Hum.rec.anlog [Toujeo Solostar] 50 unit SQ DAILY 09/16/18 [History] Lisinopril [Zestril] 2.5 mg PO DAILY 09/16/18 [History] Multivitamins, Thera [Multivitamin (formulary)] 1 tab PO DAILY 09/16/18 [History] Oxybutynin Chloride [Ditropan] 5 mg PO DAILY 09/16/18 [History] Vit C/E/Zn/Coppr/Lutein/Zeaxan [Preservision Areds 2 Softgel] 1 cap PO DAILY 09/16/18 [History] metFORMIN HCL [Glucophage] 500 mg PO BID 09/16/18 [History] Ergocalciferol (Vitamin D2) [Drisdol] 50,000 unit PO Q7D 11/18/18 [History] Metoprolol Succinate [Toprol XL] 25 mg PO DAILY 11/18/18 [History] Mirabegron [Myrbetriq] 50 mg PO DAILY 11/18/18 [History] Temazepam [Restoril] 15 mg PO HS 11/18/18 [History] Amoxic-Pot Clav 875-125Mg [Augmentin 875-125] 1 tab PO Q12HR #20 tablet 11/22/18 [Rx] Methenamine/Sodium Salicylate [Cystex Tablet] 1 each PO DAILY #30 tablet 11/22/18 [Rx] Follow up Appointment(s)/Referral(s): Sterling Bella MD [Primary Care Provider] - 11/27/18 3:00 pm Patient Instructions/Handouts: Amoxicillin/Clavulanate Potassium (By mouth), Methenamine (By mouth), Dehydration (DC), Urinary Tract Infection in Women (DC)
--- NOTE | 2018-11-22 22:11 | P.PN ---
Subjective Progress Note Date: 11/22/18 This is an 88-year-old female complains of status post a slip and fall at home. Patient denies any loss of consciousness. She states she was able to push her alert button and EMS came to pick her up. She states she was starting to have diarrhea which would be her first episode of this and was trying to get to the bathroom very quickly with her walker and she was almost there but felt a little lightheaded and then had a trip on a rug and fall. She also gives history of urinary tract infection that has lasted for the past 6 months. Recently she has been on Keflex. Patient was seen by Dr. Colbert and underwent a cystoscope in the office on Monday. Patient was told she has a prolapsed bladder. Dr. Colbert gave the patient a prescription for Macrodantin to take for 3 days if she develops signs and symptoms of a UTI. Patient states that she did take the medication Monday and Monday and completed the course. Patient states when she is having a urinary tract infection her s ymptoms are frequency every half hour with terrible burning. She denies any flank pain, suprapubic pain and no fever or chills. She states she may have shakes sometimes. Daughter adds that when patient has frequency of urination and she does not to drink enough fluids so she does not need to get up to the bathroom. Patient does not recall the names of previous antibiotics that she has used over the past 6 months. Patient came into the [facility] emergency center by EMS. She was afebrile. Heart rate running 100-124, blood pressure 109/60 47. Orthostatics were negative. EKG was a sinus rhythm with occasional PACs without acute changes. He white count 11, hemoglobin 8.7, platelet count 258. BUN 49 and creatinine 1.89, blood sugar 137, sodium 137, potassium 5.6, chloride 102, CO2 24. C. difficile toxin negative. Alkaline phosphatase 170. Urinalysis was cloudy, leukoesterase large, rbc's 10, WBCs greater than 182, WBC clumps moderate, squamous cells 19. CAT scan of the brain showed no acute findings. Patient was given 500 mL of normal saline Patient was admitted to the [facility] floor for acute kidney injury and started on IV fluids at 100 mL per hour and er tapenem. Repeat urinalysis and urine culture were obtained by straight cath. Noted the patient was also in the emergency center and diagnosed with UTI and discharged on Bactrim for 7 day course. Urine culture at that time was Klebsiella pneumoniae gomez sensitive and resistant only to ampicillin and nitrofurantoin. Repeat urine cultures done as an outpatient were finalized on October 17 with normal pravin and November 09 with no growth. Patient has been taking D-Mannose as well. Patient is currently having frequency of urination thought to be due to IV fluids. She denies any burning sensation at this time. Patient has had decreased appetite for the past 2 years since her . 11/21/2018 patient relates he is doing somewhat better today. The diarrhea has resolved. He's had a couple of stools today that were non-diarrhea. She's having no smoking abdominal pain. No further fevers or chills. Urine culture is in process. 11/22/2018 the patient is feeling better again today. She's had no further syncopal events. Her acute renal failure has improved. She's feeling considera lizett better. She has no nausea or emesis. Looks forward to potential discharge to home. She's having no further diarrhea and denies any distinct abdominal pain. Objective - Vital Signs Vital signs: Vital Signs Temp 97.7 F 11/22/18 04:05 Pulse 99 11/22/18 08:00 Resp 18 11/22/18 08:00 BP 144/65 11/22/18 04:05 Pulse Ox 95 11/22/18 04:05 Intake & Output 11/22/18 11/22/18 11/23/18 06:59 18:59 06:59 Intake Total 480 Balance 480 Intake: Oral 480 Other: Voiding Method Toilet Toilet Diaper Diaper Incontinent Incontinent # Voids 2 5 # Bowel Movements 1 - Exam Gen: This is an 88-year-old female. Patient is resting on the edge of the bed and appears to be comfortable and in no acute distress. HEENT: Head is atraumatic, normocephalic. Pupils equal, round. Sclerae is anicteric. Conjunctiva pink. NECK: Supple. No JVD. No lymphadenopathy. No thyromegaly. LUNGS: Clear to auscultation. No wheezes or rhonchi. No intercostal retractions. HEART: Regular rate and rhythm. No murmur. ABDOMEN: Soft. Bowel sounds are present. No masses. No tenderness. No suprapubic tenderness, no CVA tenderness bilaterally. EXTREMITIES: No pedal edema. No calf tenderness. Dorsalis pedis +2 bilaterally. NEUROLOGICAL: Patient is awake, alert and oriented x3. Cranial nerves 2 through 12 are grossly intact. - Labs CBC & Chem 7: 11/20/18 08:29 11/20/18 08:29 Labs: Abnormal Lab Results - Last 24 Hours (Table) 11/22/18 11/22/18 11/22/18 Range/Units 02:37 07:16 07:33 POC Glucose (mg/dL) 127 H 63 L 66 L (75-99) mg/dL 11/22/18 11/22/18 Range/Units 07:59 11:06 POC Glucose (mg/dL) 107 H 204 H (75-99) mg/dL Microbiology - Last 24 Hours (Table) 11/19/18 14:25 Blood Culture - Preliminary Blood No Growth after 72 hours Laboratory Results WBC 12.2 k/uL (3.8-10.6) H 11/20/18 08:29 RBC 2.91 m/uL (3.80-5.40) L 11/20/18 08:29 Hgb 8.7 gm/dL (11.4-16.0) L 11/20/18 08:29 Hct 28.2 % (34.0-46.0) L 11/20/18 08:29 MCV 97.0 fL (80.0-100.0) 11/20/18 08:29 MCH 29.7 pg (25.0-35.0) 11/20/18 08:29 MCHC 30.6 g/dL (31.0-37.0) L 11/20/18 08:29 RDW 13.7 % (11.5-15.5) 11/20/18 08:29 Plt Count 319 k/uL (150-450) 11/20/18 08:29 Neutrophils % 66 % 11/20/18 08:29 Lymphocytes % 23 % 11/20/18 08:29 Monocytes % 7 % 11/20/18 08:29 Eosinophils % 2 % 11/20/18 08:29 Basophils % 1 % 11/20/18 08:29 Neutrophils # 8.0 k/uL (1.3-7.7) H 11/20/18 08:29 Lymphocytes # 2.9 k/uL (1.0-4.8) 11/20/18 08:29 Monocytes # 0.8 k/uL (0-1.0) 11/20/18 08:29 Eosinophils # 0.3 k/uL (0-0.7) 11/20/18 08:29 Basophils # 0.1 k/uL (0-0.2) 11/20/18 08:29 Hypochromasia Slight 11/20/18 08:29 Sodium 142 mmol/L (137-145) 11/20/18 08:29 Potassium 4.7 mmol/L (3.5-5.1) 11/20/18 08:29 Chloride 110 mmol/L (98-107) H 11/20/18 08:29 Carbon Dioxide 22 mmol/L (22-30) 11/20/18 08:29 Anion Gap 10 mmol/L 11/20/18 08:29 BUN 28 mg/dL (7-17) H 11/20/18 08:29 Creatinine 1.15 mg/dL (0.52-1.04) H 11/20/18 08:29 Est GFR (CKD-EPI)AfAm 49 (>60 ml/min/1.73 sqM) 11/20/18 08:29 Est GFR (CKD-EPI)NonAf 43 (>60 ml/min/1.73 sqM) 11/20/18 08:29 Glucose 113 mg/dL (74-99) H 11/20/18 08:29 POC Glucose (mg/dL) 204 mg/dL (75-99) H 11/22/18 11:06 POC Glu Adjustment Supervisor ID Alysia George 11/22/18 11:[address] Glu mg/dL 91 11/19/18 11:05 Hemoglobin A1c 4.8 % (4.0-6.0) 11/19/18 11:05 Calcium 8.9 mg/dL (8.4-10.2) 11/20/18 08:29 Total Bilirubin 0.7 mg/dL (0.2-1.3) 11/20/18 08:29 AST 23 U/L (14-36) 11/20/18 08:29 ALT 30 U/L (9-52) 11/20/18 08:29 Alkaline Phosphatase 134 U/L (38-126) H 11/20/18 08:29 Total Protein 6.6 g/dL (6.3-8.2) 11/20/18 08:29 Albumin 3.6 g/dL (3.5-5.0) 11/20/18 08:29 Urine Color Yellow 11/19/18 13:40 Urine Appearance Turbid (Clear) H 11/19/18 13:40 Urine pH 5.5 (5.0-8.0) 11/19/18 13:40 Ur Specific [place] 1.010 (1.001-1.035) 11/19/18 13:40 Urine Protein 1+ (Negative) H 11/19/18 13:40 Urine Glucose (UA) Negative (Negative) 11/19/18 13:40 Urine Ketones Negative (Negative) 11/19/18 13:40 Urine Blood Moderate (Negative) H 11/19/18 13:40 Urine Nitrite Negative (Negative) 11/19/18 13:40 Urine Bilirubin Negative (Negative) 11/19/18 13:40 Urine Urobilinogen <2.0 mg/dL (<2.0) 11/19/18 13:40 Ur Leukocyte Esterase Large (Negative) H 11/19/18 13:40 Urine RBC 76 /hpf (0-5) H 11/19/18 13:40 Urine WBC >182 /hpf (0-5) H 11/19/18 13:40 Urine WBC Clumps Many /hpf (None) H 11/19/18 13:40 Ur Squamous Epith Cells 2 /hpf (0-4) 11/19/18 13:40 Urine Bacteria Many /hpf (None) H 11/19/18 13:40 Hyaline Casts 9 /lpf (0-2) H 11/18/18 22:50 C. difficile (EIA) Intrp Negative (Negative) 11/18/18 22:50 Microbiology 11/19/18 14:25 Blood Blood Culture - Preliminary No Growth after 72 hours 11/18/18 22:50 Urine,Voided Urine Culture - Final Klebsiella oxytoca Enterococcus faecalis 11/19/18 13:40 Urine,Catheterized Urine Culture - Final 11/18/18 22:50 Stool Stool Culture - Preliminary Escherichia coli O157:H7 Assessment and Plan (1) Acute kidney injury Status: Acute Code(s): N17.9 - ACUTE KIDNEY FAILURE, UNSPECIFIED SNOMED Code(s): 27284930 (2) Urinary tract infection Narrative/Plan: 88-year-old woman presents after becoming weak at home, she was having some difficulty with some loose stool but had just started, she was rushing to the restroom when she slipped and fell. She doesn't was brought to hospital. She has a known history of multiple urinary tract infections and is currently received a dose of ertapenem based on concerns resistant pathogen. The outpatient culture does show evidence of Klebsiella pneumonia that was resistant to Macrodantin which she had just had a course for in the outpatient setting. Thus we await the urine culture results to constructs the outpatient plan. Hopefully it will be oral. And then hopefully with a product such as Cystex which will contain cranberry as well as d-mannose and probiotics and antioxidants she can have improved bladder health. She has been seen by urology and does have some bladder prolapse. The patient frequently changes or urinary pads in brief if they are soiled. She's been instructed in importance of improving her protein intake. . 11/21/2018 88-year-old woman relates that she is feeling slowly better today. She has only had a few softer stools today. She has no complaints of further urinary symptoms but does have ongoing urinary frequency while she is on IV hydration. She is not having dysuria or hematuria. She relates her urine is no longer concentrated. The urine culture is pending availability of this will then help us determine the course of antibiotic therapy at home. We'll expected to be oral given her current improvement, his lungs are noted resistant pathogens. The E. coli 01 57 as well as significant stool but Shiga toxin is still pending. However symptomatically she is doing considerably better. She is not having ongoing diarrhea. Avoidance of antidiarrheals has been related. 11/22/2018 is puzzlement is feeling definitely better today. No further diarrhea has occurred. She has no abdominal pain. No nausea or emesis. With hydration she feels considerably better and is not having any significant dysuria or hematuria. No evidence of significant toxin at this point in time and evaluation. Is likely colonized with the E. coli 01 50 7H7, likely because of her prior and extensive antibiotic exposure. Patient does have urinary tract infection as etiology of her illness at admission. In is noted that Klebsiella and enterococcus have been isolated both are susceptible to amoxicillin clavulanic acid and this is sent to her pharmacy to complete her course of therapy. 875 milligrams orally twice per day for 10 days. She is to utilize Cystex To help prevent further urinary tract infections. We also discussed her drinking of fluid and how important it is to keep her bladder flushed. She is to utilize a pad in her bed so that if she is arising to go to the restroom that she does not have leakage that she finds so disconcerting. She will follow the office if there is further needs. Status: Acute Code(s): N39.0 - URINARY TRACT INFECTION, SITE NOT SPECIFIED SNOMED Code(s): 42495410 (3) E coli serotype O157:H7 infection Status: Acute Code(s): A05.8 - OTHER SPECIFIED BACTERIAL FOODBORNE INTOXICATIONS SNOMED Code(s): 454056292
== END 2018-11-22 15:22 | disposition home or self-care (01) | DRG 683 ==
LOC: EC 20:22 → 4SSUR 11-19 01:08 → 3NMEDONC 11-19 07:40
PROVIDERS: ADMIT Internal Medicine Geriatric Medicine; ATTEND Internal Medicine Geriatric Medicine
DX: N17.9 Acute kidney failure, unspecified (principal); N39.0 Urinary tract infection, site not specified; D32.0 Benign neoplasm of cerebral meninges; D64.9 Anemia, unspecified; E78.5 Hyperlipidemia, unspecified; E86.0 Dehydration; E87.5 Hyperkalemia; I10 Essential (primary) hypertension; B96.20 Unspecified Escherichia coli [E. coli] as the cause of diseases classified elsewhere; N32.81 Overactive bladder; N99.3 Prolapse of vaginal vault after hysterectomy; W01.0XXA Fall on same level from slipping, tripping and stumbling without subsequent striking against object, initial encounter; Y92.009 Unspecified place in unspecified non-institutional (private) residence as the place of occurrence of the external cause; Z16.29 Resistance to other single specified antibiotic; Z79.4 Long term (current) use of insulin; Z79.899 Other long term (current) drug therapy; Z85.3 Personal history of malignant neoplasm of breast; Z87.440 Personal history of urinary (tract) infections; Z87.891 Personal history of nicotine dependence; Z90.10 Acquired absence of unspecified breast and nipple; Z96.653 Presence of artificial knee joint, bilateral; R19.7 Diarrhea, unspecified; E11.649 Type 2 diabetes mellitus with hypoglycemia without coma
CPT/HCPCS: 36415; 70450; 80048; 80053; 81001; 83036; 85025; 85027; 87040; 87045; 87046; 87077; 87086; 87186; 87324; 93005; 96360; 99285

== ENCOUNTER 2018-12-24 16:54 | Emergency (ER) | payer MEDICARE ==
[2018-12-24] MEDS ORDERED: SODIUM CHLORIDE 0.9% 1,000 ML IV STA ×2 (17:02)
[2018-12-24] MEDS ORDERED: SODIUM CHLORIDE 0.9% 500 ML 500 ML IV STA (17:02)
--- NOTE | 2018-12-24 17:14 | ED ---
Altered Mental Status HPI - General Stated Complaint: UNRESPONSIVE Time Seen by Provider: 12/24/18 17:00 Source: family, EMS, RN notes reviewed, old records reviewed Limitations: altered mental status, physical limitation - History of Present Illness Initial Comments: This is an 80-year-old female the ER for evaluation. Patient brought in significant unresponsive. Per family and EMS patient is DO NOT RESUSCITATE. Family found patient unresponsive at home: EMS. Family did last see patient in both last night and this morning at dinner and breakfast. MD Complaint: altered mental status, decreased responsiveness -: unknown Severity: severe Consistency of Symptoms: constant Context: other (None) Associated Symptoms: denies other symptoms - Related Data Home Medications Medication Instructions Recorded Confirmed Atorvastatin Calcium [Lipitor] 10 mg PO DAILY 09/16/18 12/24/18 Insulin Glargine,Hum.rec.anlog 50 unit SQ DAILY 09/16/18 12/24/18 [Toujeo Solostar] Lisinopril [Zestril] 2.5 mg PO DAILY 09/16/18 12/24/18 Multivitamins, Thera [Multivitamin 1 tab PO DAILY 09/16/18 12/24/18 (formulary)] Oxybutynin Chloride [Ditropan] 5 mg PO DAILY 09/16/18 12/24/18 Vit C/E/Zn/Coppr/Lutein/Zeaxan 1 cap PO DAILY 09/16/18 12/24/18 [Preservision Areds 2 Softgel] metFORMIN HCL [Glucophage] 500 mg PO BID 09/16/18 12/24/18 Ergocalciferol (Vitamin D2) 50,000 unit PO Q7D 11/18/18 12/24/18 [Drisdol] Metoprolol Succinate [Toprol XL] 25 mg PO DAILY 11/18/18 12/24/18 Mirabegron [Myrbetriq] 50 mg PO DAILY 11/18/18 12/24/18 Temazepam [Restoril] 15 mg PO HS 11/18/18 12/24/18 Methenamine/Sodium Salicylate 1 tab PO DAILY 12/24/18 12/24/18 [Cystex Tablet] Nitrofurantoin Monohyd/M-Cryst 100 mg PO DAILY 12/24/18 12/24/18 [Macrobid] Allergies Allergy/AdvReac Type Severity Reaction Status Date / Time No Known Allergies Allergy Verified 12/24/18 18:10 Review of Systems ROS Statement: Those systems with pertinent positive or pertinent negative responses have been documented in the HPI. ROS Other: All systems not noted in ROS Statement are negative. 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 History of Any Multi-Drug Resistant Organisms: None Reported Past Surgical History: Appendectomy, Hysterectomy, Joint Replacement, Tonsillectomy Additional Past Surgical History / Comment(s): Left masectomy, bilateral knee Past Anesthesia/Blood Transfusion Reactions: No Reported Reaction Additional Past Anesthesia/Blood Transfusion Reaction / Comment(s): Pt received blood with hysterectomy without reaction. Past Psychological History: No Psychological Hx Reported Smoking Status: Former smoker Past Alcohol Use History: None Reported Additional Past Alcohol Use History / Comment(s): Patient was a smoker from [id number]. No illicit drug use, no alcohol use. [facility]. Past Drug Use History: None Reported - Past Family History Father Additional Family Medical History / Comment(s): Father young d/t ""bad heart since he was a child" Mother Family Medical History: No Reported History Additional Family Medical History / Comment(s): Mother was healthy and lived to be 75yrs old. General Exam Limitations: altered mental status, physical limitation General appearance: obtunded, in distress Head exam: Present: atraumatic, normocephalic, normal inspection Eye exam: Present: normal appearance, PERRL, EOMI. Absent: scleral icterus, conjunctival injection, periorbital swelling ENT exam: Present: normal exam, mucous membranes moist Neck exam: Present: normal inspection. Absent: tenderness, meningismus, lymphadenopathy Respiratory exam: Present: normal lung sounds bilaterally. Absent: respiratory distress, wheezes, rales, rhonchi, stridor Cardiovascular Exam: Present: regular rate, normal rhythm, normal heart sounds. Absent: systolic murmur, diastolic murmur, rubs, gallop, clicks GI/Abdominal exam: Present: soft, normal bowel sounds. Absent: distended, tenderness, guarding, rebound, rigid Extremities exam: Present: normal inspection, full ROM, normal capillary refill. Absent: tenderness, pedal edema, joint swelling, calf tenderness Back exam: Present: normal inspection Neurological exam: Present: alert, oriented X3, CN II-XII intact Psychiatric exam: Present: normal affect, normal mood Skin exam: Present: warm, dry, intact, normal color. Absent: rash Course Vital Signs 12/24/18 12/24/18 12/24/18 17:03 17:04 17:10 Temperature 97.3 F L Pulse Rate 32 L 36 L 34 L Respiratory 30 H 26 H 27 H Rate Blood Pressure 73/47 73/47 O2 Sat by Pulse 95 94 L Oximetry 12/24/18 12/24/18 12/24/18 17:21 17:30 17:40 Temperature Pulse Rate 32 L 30 L 31 L Respiratory 22 30 H 30 H Rate Blood Pressure 73/47 63/29 55/35 O2 Sat by Pulse 87 L 85 L Oximetry 12/24/18 12/24/18 17:50 18:00 Temperature Pulse Rate 31 L 29 L Respiratory 30 H 28 H Rate Blood Pressure 65/35 65/35 O2 Sat by Pulse 82 L 86 L Oximetry - Reevaluation(s) Reevaluation #1: 12/24/18 19:14 Medical record reviewed Reevaluation #2: 12/24/18 19:14 Spoke with family regarding patient's poor prognosis, questions are answered. Decision is made for hospice and comfort care Reevaluation #3: 12/24/18 19:14 (Dr. Bermudez and he is aware of patient Medical Decision Making - Medical Decision Making 80 female whose no code coming in the ER for unresponsiveness, significant ST elevation and elevated troponin and EKG and labs. Patient be admitted under hospice and comfort care - Lab Data Result diagrams: 12/24/18 17:30 12/24/18 17:30 Lab Results 12/24/18 12/24/18 12/24/18 Range/Units 17:30 17:30 17:30 WBC 21.2 H (3.8-10.6) k/uL RBC 3.26 L (3.80-5.40) m/uL Hgb 9.9 L (11.4-16.0) gm/dL Hct 32.8 L (34.0-46.0) % MCV 100.6 H (80.0-100.0) fL MCH 30.4 (25.0-35.0) pg MCHC 30.2 L (31.0-37.0) g/dL RDW 12.9 (11.5-15.5) % Plt Count 263 (150-450) k/uL Neutrophils % (Manual) 57 % Band Neutrophils % 9 % Lymphocytes % (Manual) 19 % Monocytes % (Manual) 8 % Metamyelocytes % 5 % Myelocytes % 4 % Neutrophils # (Manual) 13.90 H (1.3-7.7) k/uL Lymphocytes # (Manual) 4.03 (1.0-4.8) k/uL Monocytes # (Manual) 1.70 H (0-1.0) k/uL Metamyelocytes # (Man) 1.06 H (0) k/uL Myelocytes # (Manual) 0.85 H (0) k/uL Nucleated RBCs 0 (0-0) /100 WBC Manual Slide Review Performed Polychromasia Present Hypochromasia Marked Poikilocytosis (manual Present Anisocytosis (manual) Present PT (9.0-12.0) sec INR (<1.2) APTT (22.0-30.0) sec Sodium 139 (137-145) mmol/L Potassium 6.0 H (3.5-5.1) mmol/L Chloride 105 (98-107) mmol/L Carbon Dioxide 15 L (22-30) mmol/L Anion Gap 19 mmol/L BUN 19 H (7-17) mg/dL Creatinine 1.44 H (0.52-1.04) mg/dL Est GFR (CKD-EPI)AfAm 38 (>60 ml/min/1.73 sqM) Est GFR (CKD-EPI)NonAf 33 (>60 ml/min/1.73 sqM) Glucose 224 H (74-99) mg/dL Plasma Lactic Acid José Luis 11.9 H* (0.7-2.0) mmol/L Calcium 9.2 (8.4-10.2) mg/dL Phosphorus 6.9 H (2.5-4.5) mg/dL Magnesium 2.3 (1.6-2.3) mg/dL Total Bilirubin 0.5 (0.2-1.3) mg/dL AST 36 (14-36) U/L ALT 29 (9-52) U/L Alkaline Phosphatase 144 H (38-126) U/L Troponin I (0.000-0.034) ng/mL Total Protein 5.7 L (6.3-8.2) g/dL Albumin 3.2 L (3.5-5.0) g/dL 12/24/18 12/24/18 Range/Units 17:30 17:30 WBC (3.8-10.6) k/uL RBC (3.80-5.40) m/uL Hgb (11.4-16.0) gm/dL Hct (34.0-46.0) % MCV (80.0-100.0) fL MCH (25.0-35.0) pg MCHC (31.0-37.0) g/dL RDW (11.5-15.5) % Plt Count (150-450) k/uL Neutrophils % (Manual) % Band Neutrophils % % Lymphocytes % (Manual) % Monocytes % (Manual) % Metamyelocytes % % Myelocytes % % Neutrophils # (Manual) (1.3-7.7) k/uL Lymphocytes # (Manual) (1.0-4.8) k/uL Monocytes # (Manual) (0-1.0) k/uL Metamyelocytes # (Man) (0) k/uL Myelocytes # (Manual) (0) k/uL Nucleated RBCs (0-0) /100 WBC Manual Slide Review Polychromasia Hypochromasia Poikilocytosis (manual Anisocytosis (manual) PT 11.0 (9.0-12.0) sec INR 1.0 (<1.2) APTT 23.8 (22.0-30.0) sec Sodium (137-145) mmol/L Potassium (3.5-5.1) mmol/L Chloride (98-107) mmol/L Carbon Dioxide (22-30) mmol/L Anion Gap mmol/L BUN (7-17) mg/dL Creatinine (0.52-1.04) mg/dL Est GFR (CKD-EPI)AfAm (>60 ml/min/1.73 sqM) Est GFR (CKD-EPI)NonAf (>60 ml/min/1.73 sqM) Glucose (74-99) mg/dL Plasma Lactic Acid José Luis (0.7-2.0) mmol/L Calcium (8.4-10.2) mg/dL Phosphorus (2.5-4.5) mg/dL Magnesium (1.6-2.3) mg/dL Total Bilirubin (0.2-1.3) mg/dL AST (14-36) U/L ALT (9-52) U/L Alkaline Phosphatase (38-126) U/L Troponin I 0.370 H* (0.000-0.034) ng/mL Total Protein (6.3-8.2) g/dL Albumin (3.5-5.0) g/dL - EKG Data -: EKG Interpreted by Me (EKG shows acute ST elevated [place], patient is a rate of 31, QRS 146, QTc 406) Rate: bradycardia When compared to previous EKG there are: changes noted (Patient has STEMI today prior EKG was normal) Disposition Clinical Impression: ST elevation myocardial infarction (STEMI) Disposition: ADMITTED IP TO THIS HOSP Condition: Critical Is patient prescribed a controlled substance at d/c from ED?: No Referrals: Sterling Bella MD [Primary Care Provider] - 1-2 days
[2018-12-24 17:16] VITALS: TEMP 97.3
[2018-12-24 17:54] LABS: Albumin 3.2 g/dL (3.5-5.0); Calcium 9.2 mg/dL (8.4-10.2); Magnesium 2.3 mg/dL (1.6-2.3); Phosphorus 6.9 mg/dL (2.5-4.5); Total Bilirubin 0.5 mg/dL (0.2-1.3); Total Protein 5.7 g/dL (6.3-8.2)
[2018-12-24 18:03] LABS: HCT 32.8 % (34.0-46.0); HGB 9.9 gm/dL (11.4-16.0); Hypochromasia Marked; MCH 30.4 pg (25.0-35.0); MCHC 30.2 g/dL (31.0-37.0); MCV 100.6 fL (80.0-100.0); Mean Platelet Volume 8.4; Platelet Count 263 k/uL (150-450); RBC 3.26 m/uL (3.80-5.40); RDW 12.9 % (11.5-15.5); WBC 21.2 k/uL (3.8-10.6)
[2018-12-24 18:04] LABS: Partial Thromboplastin Time 23.8 sec (22.0-30.0)
[2018-12-24 18:06] VITALS: BP 65/35; PULSE 29; RESP 28
[2018-12-24 18:48] LABS: Band Neutrophils % 9 %; Lymphocytes # (M) 4.03 k/uL (1.0-4.8); Metamyelocytes # (M) 1.06 k/uL (0); Metamyelocytes % 5 %; Myelocytes # (M) 0.85 k/uL (0); Myelocytes % 4 %; Neutrophils % (M) 57 %; Nucleated Red Blood Cells 0 /100 WBC (0-0); Total Cells Counted 200
[2018-12-24 18:49] LABS: Anisocytosis (M) Present; Poikilocytosis (M) Present; Polychromasia Present
[2018-12-24] MEDS ORDERED: ONDANSETRON 4 MG/2 ML VIAL IVP PRN (19:10)
[2018-12-24] MEDS ORDERED: ONDANSETRON 4 MG/2 ML VIAL IVP STA (19:10)
[2018-12-24] MEDS ORDERED: SODIUM CHLORIDE 0.9% 1,000 ML IV ONE (19:10)
[2018-12-24] MEDS ORDERED: LORazepam 2 MG/ML INJ IV STA (19:10)
[2018-12-24] MEDS ORDERED: MORPHINE SULFATE 2 MG/ML SYRINGE IV PRN (19:10)
[2018-12-24] MEDS ORDERED: LORazepam 2 MG/ML INJ IV PRN (19:10)
[2018-12-24] MEDS ORDERED: MORPHINE SULFATE 2 MG/ML SYRINGE IVP STA (19:10)
--- NOTE | 2018-12-24 19:39 | ED ---
Medical Decision Making - Medical Decision Making 88-year-old female called to reassess regarding significant decline in symptoms. Patient no longer breathing, asystole on the monitor dilated patient is cold with no pulse no heart sounds are breath sounds. Patient is pronounced at 1938 - Lab Data Result diagrams: 12/24/18 17:30 12/24/18 17:30 Lab Results 12/24/18 12/24/18 12/24/18 Range/Units 17:30 17:30 17:30 WBC 21.2 H (3.8-10.6) k/uL RBC 3.26 L (3.80-5.40) m/uL Hgb 9.9 L (11.4-16.0) gm/dL Hct 32.8 L (34.0-46.0) % MCV 100.6 H (80.0-100.0) fL MCH 30.4 (25.0-35.0) pg MCHC 30.2 L (31.0-37.0) g/dL RDW 12.9 (11.5-15.5) % Plt Count 263 (150-450) k/uL Neutrophils % (Manual) 57 % Band Neutrophils % 9 % Lymphocytes % (Manual) 19 % Monocytes % (Manual) 8 % Metamyelocytes % 5 % Myelocytes % 4 % Neutrophils # (Manual) 13.90 H (1.3-7.7) k/uL Lymphocytes # (Manual) 4.03 (1.0-4.8) k/uL Monocytes # (Manual) 1.70 H (0-1.0) k/uL Metamyelocytes # (Man) 1.06 H (0) k/uL Myelocytes # (Manual) 0.85 H (0) k/uL Nucleated RBCs 0 (0-0) /100 WBC Manual Slide Review Performed Polychromasia Present Hypochromasia Marked Poikilocytosis (manual Present Anisocytosis (manual) Present PT (9.0-12.0) sec INR (<1.2) APTT (22.0-30.0) sec Sodium 139 (137-145) mmol/L Potassium 6.0 H (3.5-5.1) mmol/L Chloride 105 (98-107) mmol/L Carbon Dioxide 15 L (22-30) mmol/L Anion Gap 19 mmol/L BUN 19 H (7-17) mg/dL Creatinine 1.44 H (0.52-1.04) mg/dL Est GFR (CKD-EPI)AfAm 38 (>60 ml/min/1.73 sqM) Est GFR (CKD-EPI)NonAf 33 (>60 ml/min/1.73 sqM) Glucose 224 H (74-99) mg/dL Plasma Lactic Acid José Luis 11.9 H* (0.7-2.0) mmol/L Calcium 9.2 (8.4-10.2) mg/dL Phosphorus 6.9 H (2.5-4.5) mg/dL Magnesium 2.3 (1.6-2.3) mg/dL Total Bilirubin 0.5 (0.2-1.3) mg/dL AST 36 (14-36) U/L ALT 29 (9-52) U/L Alkaline Phosphatase 144 H (38-126) U/L Troponin I (0.000-0.034) ng/mL Total Protein 5.7 L (6.3-8.2) g/dL Albumin 3.2 L (3.5-5.0) g/dL 12/24/18 12/24/18 Range/Units 17:30 17:30 WBC (3.8-10.6) k/uL RBC (3.80-5.40) m/uL Hgb (11.4-16.0) gm/dL Hct (34.0-46.0) % MCV (80.0-100.0) fL MCH (25.0-35.0) pg MCHC (31.0-37.0) g/dL RDW (11.5-15.5) % Plt Count (150-450) k/uL Neutrophils % (Manual) % Band Neutrophils % % Lymphocytes % (Manual) % Monocytes % (Manual) % Metamyelocytes % % Myelocytes % % Neutrophils # (Manual) (1.3-7.7) k/uL Lymphocytes # (Manual) (1.0-4.8) k/uL Monocytes # (Manual) (0-1.0) k/uL Metamyelocytes # (Man) (0) k/uL Myelocytes # (Manual) (0) k/uL Nucleated RBCs (0-0) /100 WBC Manual Slide Review Polychromasia Hypochromasia Poikilocytosis (manual Anisocytosis (manual) PT 11.0 (9.0-12.0) sec INR 1.0 (<1.2) APTT 23.8 (22.0-30.0) sec Sodium (137-145) mmol/L Potassium (3.5-5.1) mmol/L Chloride (98-107) mmol/L Carbon Dioxide (22-30) mmol/L Anion Gap mmol/L BUN (7-17) mg/dL Creatinine (0.52-1.04) mg/dL Est GFR (CKD-EPI)AfAm (>60 ml/min/1.73 sqM) Est GFR (CKD-EPI)NonAf (>60 ml/min/1.73 sqM) Glucose (74-99) mg/dL Plasma Lactic Acid José Luis (0.7-2.0) mmol/L Calcium (8.4-10.2) mg/dL Phosphorus (2.5-4.5) mg/dL Magnesium (1.6-2.3) mg/dL Total Bilirubin (0.2-1.3) mg/dL AST (14-36) U/L ALT (9-52) U/L Alkaline Phosphatase (38-126) U/L Troponin I 0.370 H* (0.000-0.034) ng/mL Total Protein (6.3-8.2) g/dL Albumin (3.5-5.0) g/dL Disposition Clinical Impression: ST elevation myocardial infarction (STEMI) Disposition: Condition: Critical Referrals: Sterling Bella MD [Primary Care Provider] - 1-2 days Preliminary Cause of : CPA,NM
== END 2018-12-24 21:35 | disposition expired ==
LOC: EC 16:54
DX: I21.3 ST elevation (STEMI) myocardial infarction of unspecified site (principal); R00.1 Bradycardia, unspecified; R79.89 Other specified abnormal findings of blood chemistry; R41.82 Altered mental status, unspecified; Z66 Do not resuscitate; E11.9 Type 2 diabetes mellitus without complications; E78.5 Hyperlipidemia, unspecified; I10 Essential (primary) hypertension; M47.26 Other spondylosis with radiculopathy, lumbar region; Z87.891 Personal history of nicotine dependence; Z79.4 Long term (current) use of insulin; Z79.899 Other long term (current) drug therapy; Z85.3 Personal history of malignant neoplasm of breast; Z90.12 Acquired absence of left breast and nipple; Z96.653 Presence of artificial knee joint, bilateral; Z87.440 Personal history of urinary (tract) infections; Z87.448 Personal history of other diseases of urinary system; Z82.49 Family history of ischemic heart disease and other diseases of the circulatory system
CPT/HCPCS: 36415; 80053; 83605; 83735; 84100; 84484; 85025; 85610; 85730; 99285; 96374; 96375; 96361 ×2; J2405; J2270